=== PATIENT | female | born 1970 | race Caucasian/White ===

== ENCOUNTER 2017-03-06 08:28 | Inpatient (IN) | payer BC, MEDICAID, OTHER ==
[2017-03-06] MEDS ORDERED: Pantoprazole 40 MG VIAL ONE (08:53)
[2017-03-06] MEDS ORDERED: Fentanyl 100 MCG/2 ML VIAL ONE ×2 (08:53→11:30)
[2017-03-06] MEDS ORDERED: Ondansetron HCl/PF 4 MG/2 ML Vial ONE ×2 (08:53→13:35)
[2017-03-06] MEDS ORDERED: Pantoprazole 80 MG, Admixture Fee 1 EACH in Sodium Chloride 0.9% 100 ML IVP SCH (09:00)
[2017-03-06 09:01] LABS: Hematocrit 24.7 % (36.0-47.0); Mean Platelet Volume 6.8 fL (7.4-10.4); Red Blood Cell (RBC) Count 2.43 mill/uL (4.20-5.40); White Blood Cell (WBC) Count 16.1 thou/uL (4.8-10.8)
[2017-03-06 09:02] LABS: #Basophils 0.1 thou/uL (0.0-0.2); #Lymphocytes 1.9 thou/uL (1.20-3.40); #Neutrophils 13.1 thou/uL (1.40-6.50); %Basophils 0.4 % (0.0-1.0); %Eosinophils 0.3 % (0.0-10.0); %Lymphocytes 11.8 % (21.0-51.0); %Monocytes 6.1 % (0.0-10.0)
[2017-03-06 09:06] LABS: Prothrombin Time 24.1 SEC (12.0-14.7)
[2017-03-06 09:07] LABS: PTT 38.3 SEC (22.9-36.1)
[2017-03-06 09:29] LABS: Macrocytosis SLIGHT = 6-15 cells (100X) (0-5/hpf); Polychromasia MODERATE = 3-4 cells (100X) (0-2/hpf)
[2017-03-06] MEDS ORDERED: Acetaminophen 325 MG TAB PO PRN (09:49)
[2017-03-06] MEDS ORDERED: Ondansetron HCl/PF 4 MG/2 ML Vial IVP PRN (09:49)
[2017-03-06 12:25] LABS: #Lymphocytes 2.4 thou/uL (1.20-3.40); #Monocytes 0.9 thou/uL (0.11-0.59); #Neutrophils 10.2 thou/uL (1.40-6.50); %Basophils 0.3 % (0.0-1.0); %Eosinophils 0.3 % (0.0-10.0); %Lymphocytes 17.9 % (21.0-51.0); %Monocytes 6.5 % (0.0-10.0); Hematocrit 22.1 % (36.0-47.0); Mean Platelet Volume 6.8 fL (7.4-10.4); Red Blood Cell (RBC) Count 2.19 mill/uL (4.20-5.40); White Blood Cell (WBC) Count 13.6 thou/uL (4.8-10.8)
--- NOTE | 2017-03-06 12:40 | HP ---
PRIMARY CARE PROVIDER: Dr. Sanchez in [place], [place]. Referred to [facility] Emergency Department by the hospital in [place] for [facility] pitalist Service for GI bleeding. HISTORY OF PRESENT ILLNESS: Patient with her 7th gastrointestinal bleed this year. She had been hos pitalized at multiple hospitals. She started vomiting bright red blood and bright red blood per rect um in the past 12 hours. She has had dizziness and some cramping pain in her abdomen, which always s tarts the issue. She was seen in the [place] Emergency Room and found to have hemoglobin less than 7 and INR greater than 4. She was given fresh-frozen plasma and either 1 or 2 units of blood. At t hat point, she was transferred here. She is currently alert, awake, and fully cooperative. CURRENT MEDICATIONS: Losartan 125 one a day, Coumadin 5 mg a day, Topamax 25 mg twice a day, Keppra 750 mg twice a day. She is on no PPI. CHRONIC MEDICAL PROBLEMS: Hypertension, mitral valve prosthesis, chronic anticoagulation, migraine h eadaches, seizure disorder, hypertension. ALLERGIES: None, but she cannot take STEROIDS because this interferes with her Keppra. PAST SURGICAL HISTORY: She has had multiple EGDs and colonoscopies during the past year and has been found to have peptic ulcer disease and transiently treated with Protonix, but is currently not on a PPI. SOCIAL HISTORY: . CODE STATUS: FULL CODE status. No alcohol, tobacco, or illicit drugs. FAMILY HISTORY: Mother had a CVA. Father of an AK at 59. Has a daughter with vasculitis and M S. REVIEW OF SYSTEMS: General: She has had hot and cold spells, dizziness with present illness, but no fainting. She has recurrent migraine headaches. Eyes: She has had blurred vision with present il lness, no double vision or flashing lights. ENT: She has had epistaxis x2 in the past week. She color[place] s had bleeding when she brushes her gums. No ear pain or drainage. Cardiac: No chest pain, orthopn ea, or paroxysmal nocturnal dyspnea. Respirations: She gets short of breath when she is actively bl eeding and she is short of breath with exertion now with no cough, wheezing, or asthma. Gastrointest inal: See present illness. Genitourinary: No hematuria, dysuria. Musculoskeletal: No pain or swe lling in arms or legs. Neurological: No strokes, seizures, or focal weakness. Recently, she does t jaret Kera for seizure disorder. Psychiatric: No anxiety or depression. Skin: No bruising, bleedi ng, or rash. Heme/Lymph: No tender or swollen lymph nodes in axilla, inguinal, or cervical area. PHYSICAL EXAMINATION: GENERAL: The patient is alert, oriented, cooperative, pleasant lady. VITAL SIGNS: Blood pressure 145/85, pulse 107, respirations 16, temperature 99, O2 sat 100 on room a ir. HEENT: Examination of her head, eyes, ears, nose, and throat, pupils are equal, round, and reactive to light. Extraocular movements are intact. Mucous membranes are pale. Sclerae white. Tympanic me mbranes clear. Nose clear. Oral mucous membranes reveal no active bleeding at the present time. NECK: No jugular venous distention, adenopathy, or thyromegaly. CHEST: Clear to auscultation and percussion. HEART: Regular rate and rhythm. First and second heart sounds are clear. There are no appreciated murmurs or gallops. ABDOMEN: Soft, bowel sounds are normal. There is no hepatosplenomegaly, no mass, no rebound, no bru its. There is red blood in the rectal vault. EXTREMITIES: Reveal no cyanosis, clubbing, or edema. PULSES: Carotid, radial, femoral, and dorsalis pedis pulses intact. SKIN: Warm and dry without bruises or rash. HEME/LYMPH: No tender or swollen lymph nodes in axilla, inguinal, or cervical area. NEUROLOGICAL EXAM: Cranial nerves II-XII are intact. Deep tendon reflexes symmetric. LABORATORY DATA: Done in [place], sodium 135, potassium 3.9, chloride 109, CO2 of 14, BUN 53.8, cr eatinine 1.2, alkaline phosphatase 184, bilirubin 0.3. Transaminases are normal. White cell count 1 4.28, hemoglobin 7.1, platelet count 354,000. INR 4.6. I cannot find evidence of an EKG or chest x- ray done there. Here, her INR is 2.1, hemoglobin is 8.2, white count 16.1, platelet count 324,000. ADMITTING DIAGNOSES: 1. Acute gastrointestinal bleeding, both hematemesis and hematochezia. 2. Chronic anticoagulation, on Coumadin with coagulopathy secondary to anticoagulation post fresh-fr ozen plasma with INR now acceptable. 3. Prosthetic mitral valve. 4. Hypertension. 5. Seizure disorder. 6. History of peptic ulcer disease, not on a proton pump inhibitor. PLAN: 1. ICU admit. Daily PT/INR. We will start Coumadin when the INR is below 2, and start Lovenox now. 2. Serial H and H, transfuse for hemoglobin less than 7. 3. Protonix 40 mg IV q.12 hours. 4. Tagged red cell bleeding scan has been ordered stat. 5. GI consult. 6. IV fluids.
[2017-03-06] MEDS ORDERED: Acetaminophen 325 MG TAB ONE (13:35)
[2017-03-06] MEDS ORDERED: Morphine 4 MG/ML VIAL ONE (14:20)
--- NOTE | 2017-03-06 14:59 | NM ---
GI BLEEDING SCAN: HISTORY: Rectal bleeding. FINDINGS: The patient was given 27 mCi of Technetium tagged red blood cells IV. Blood flow and delayed images were obtained up to 90 minutes. FINDINGS: Initial blood flow images show normal vascular activity. Delayed images show vascular activity. No evidence of GI bleed identified. IMPRESSION: Negative GI bleeding scan. POS: [facility]
--- NOTE | 2017-03-06 16:57 | PDOC.EVN ---
Event Note - Event Note Event Note: bleeding scan neg, no active bleeding pr orpo since i saw her this am, CO abd pain, has benign exam
[2017-03-06] MEDS: Morphine 4 MG/ML VIAL SLOW IVP PRN ×2 (17:32→21:31)
[2017-03-06 18:49] LABS: #Eosinphils 0.1 thou/uL (0.0-0.7); #Lymphocytes 3.4 thou/uL (1.20-3.40); #Neutrophils 7.5 thou/uL (1.40-6.50); %Basophils 0.4 % (0.0-1.0); %Eosinophils 0.4 % (0.0-10.0); %Lymphocytes 28.6 % (21.0-51.0); %Monocytes 8.6 % (0.0-10.0); Hematocrit 20.2 % (36.0-47.0); Mean Platelet Volume 6.5 fL (7.4-10.4); Red Blood Cell (RBC) Count 2.01 mill/uL (4.20-5.40)
[2017-03-06] MEDS ORDERED: GoLYTELY 4,000 ml Bottle PO SCH (20:00)
[2017-03-06] MEDS: Sodium Chloride 0.45% 1,000 ML IV SCH (20:34)
[2017-03-06] MEDS: Pantoprazole 40 MG VIAL IVP SCH (20:35)
[2017-03-06] MEDS: levETIRAcetam 500 MG TAB PO SCH (20:35)
[2017-03-06] MEDS: Enoxaparin Sodium 80 MG/0.8 ML SYRINGE SC SCH (20:35)
[2017-03-06] MEDS: Sodium Chloride 0.9% 1,000 ML IV SCH (20:40)
[2017-03-06] MEDS: Acetaminophen/Codeine 30-300mg Tablet PO PRN (21:09)
--- NOTE | 2017-03-06 22:47 | CON ---
DATE OF CONSULTATION: 03/06/2017 A [id number] who had rheumatic valvular heart disease. She had mitral valve replacement with mec hanical valve 2 years ago. She has been on warfarin since then. She has had 6 GI bleeds she says pr marinor to this admission. She is little vague and describing what they found whether GI bleeds. She sa ys she has had "tied off and cauterized." She has a home monitoring INR device and says that her INR was greater than 4 yesterday. She held her Coumadin she says yesterday and was going to see her doc tor today when she started having melena and threw up old blood. She denies drawn bright red blood. PAST MEDICAL HISTORY: Remarkable for hypertension, history of seizure disorder, history of hypertens ion, history of vascular headaches. She reports steroid intolerance. FAMILY HISTORY: Negative for lung disease at an early age. Father of coronary artery di sease. Mother had a cerebrovascular accident. She has a daughter with vasculitis. REVIEW OF SYSTEMS: Otherwise negative. PHYSICAL EXAMINATION: GENERAL: She is afebrile, heart rate is 105, blood pressure 160/63, respiratory rate is 18, oximetry is 100%. HEENT: Pupils are equal. Sclerae is anicteric. NECK: Supple. LUNGS: Clear. HEART: Regular rhythm. ABDOMEN: Soft and nontender. EXTREMITIES: Without asymmetry. LABORATORY DATA: White count 13.6, hemoglobin 7.6, 8.2 four hours earlier, platelets 301. INR was 2 .1. She was given vitamin K, I am told. She had a gastrointestinal blood loss scan done at 9:45 this morning which showed no bleeding. IMPRESSION: Gastrointestinal bleeding secondary to anticoagulation. GI has been consulted. She bonnie ears clinically stable. Hemoglobin was to be repeated on arrival in the Critical Care Unit.
--- NOTE | 2017-03-07 00:21 | CON ---
DATE OF CONSULTATION: 03/06/2017 REASON FOR CONSULTATION: GI bleeding. CONSULTING PHYSICIAN: Keri Ritter M.D. HISTORY OF PRESENT ILLNESS: Patient is a 46-year-old female with past medical history of seizure disorder, hypertension, mechanical mitral valve of heart, and gastrointestinal bleeding secondary to gastric and duodenal ulcers, presenting with complaints of hematochezia and hematemesis. She states that over the last 12-24 hours she experienced increased abdominal cramping, generalized to her entire abdomen, nausea, vomiting, and dizziness that she has felt on previous occasions of GI bleeding. Shortly after the appearance of these symptoms, she experienced hematemesis in the form of vomiting bright red blood in addition to bright red blood per rectum, and hematuria. She chose to seek medical records assistant at the [facility] emergency room where she was found to have a hemoglobin less than 7, and an INR greater than 4. She was given FFP and PRBCs and transferred to [facility] ER. At the current point in time, she has had resolution of her abdominal cramping, nausea, and vomiting and no repeated episodes of GI bleeding since she has been inpatient. She denies any use of NSAIDs as an outpatient, but does have a history of approximately 7 discrete episodes of GI bleeding manifested as either upper GI or lower GI bleeding from ulcerations and/or AVMs. OUTPATIENT MEDICATIONS: Losartan 125 mg once daily, Coumadin 5 mg once daily, Topamax 25 mg twice daily, Keppra 750 mg twice daily. PAST MEDICAL HISTORY: Hypertension, mitral valve prosthesis, migraines, seizure disorder, hypertension. ALLERGIES: No known drug allergies. PAST SURGICAL HISTORY: Multiple endoscopies of both the upper and lower GI tract. SOCIAL HISTORY: Denies any tobacco, alcohol, or drugs. FAMILY HISTORY: CVA (mother), cardiovascular disease (father), vasculitis and multiple sclerosis (daughter). REVIEW OF SYSTEMS: A 12 category review of systems was obtained and was negative except for the pertinent positives as listed above in the HPI. PHYSICAL EXAMINATION: VITAL SIGNS: Heart rate 99, blood pressure 159/72, respiratory rate 17, satting 100% on room air. GENERAL: Patient is alert and oriented x4. HEENT: Pupils are equal and round, reactive to light with extraocular movement intact. CARDIOVASCULAR: Regular rate and rhythm with no discernible murmurs, gallops, or rubs. There was a loud clicking sound heard in the apex of the heart consistent with mitral valve prosthesis. ABDOMEN: Normoactive bowel sounds, soft, tender to palpation in all abdominal quadrants. EXTREMITIES: No cyanosis, clubbing, or edema. LABORATORY DATA: CBC with a white count of 12, hemoglobin 6.9, hematocrit 20.2 , platelet count 289. INR 2.1. IMAGING: Nuclear tagged red blood cell scan obtained on 03/06/2017, was negative for any acute gastrointestinal bleeding. ASSESSMENT AND PLAN: The patient is a 46-year-old female with past medical history of seizure disorder, migraines, hypertension, mechanical mitral valve prosthesis and previous episodes of GI bleeding, presenting with hematemesis and hematochezia, most likely due to a supratherapeutic INR. Gastrointestinal bleeding Patient presenting with a longstanding history of both upper and lower GI bleeds while on chronic anticoagulation for her mitral heart valve prosthesis. She has had multiple EGDs and colonoscopies with findings of gastric ulcers, duodenal ulcers, GI mucosal arteriovenous malformations and/or Dieulafoy's lesion. At this point in time, giving the appearance of hematemesis and hematochezia while on supratherapeutic INR and given her prior history of GI bleeding, bleeding in either the upper or lower GI tract cannot be ruled out. As such, the patient would benefit from both upper and lower endoscopic evaluation. PLAN: 1. We will plan for both EGD and colonoscopy tomorrow. We will place orders for the patient to be n.p.o. at midnight and GoLYTELY prep tonight. 2. Continue to trend H&H and transfuse as necessary to maintain H/H above 7/21. 3. Continue PPI drip. 4. Please notify GI director of recreation therapy if clinical situation changes. We will continue to follow. Please call with any questions. MTDD
[2017-03-07] MEDS: Morphine 4 MG/ML VIAL SLOW IVP PRN ×6 (01:33→23:13)
[2017-03-07 01:54] LABS: #Basophils 0.1 thou/uL (0.0-0.2); #Eosinphils 0.1 thou/uL (0.0-0.7); #Lymphocytes 3.1 thou/uL (1.20-3.40); #Monocytes 0.9 thou/uL (0.11-0.59); #Neutrophils 6.3 thou/uL (1.40-6.50); %Basophils 0.6 % (0.0-1.0); %Eosinophils 0.8 % (0.0-10.0); %Lymphocytes 29.8 % (21.0-51.0); %Monocytes 8.3 % (0.0-10.0); Hematocrit 22.6 % (36.0-47.0); Mean Platelet Volume 6.5 fL (7.4-10.4); Red Blood Cell (RBC) Count 2.29 mill/uL (4.20-5.40); White Blood Cell (WBC) Count 10.5 thou/uL (4.8-10.8)
[2017-03-07] MEDS ORDERED: GoLYTELY 4,000 ml Bottle PO SCH (05:00)
[2017-03-07] MEDS: Sodium Chloride 0.45% 1,000 ML IV SCH ×2 (06:07→13:04)
[2017-03-07 06:27] LABS: #Basophils 0.1 thou/uL (0.0-0.2); #Eosinphils 0.1 thou/uL (0.0-0.7); #Lymphocytes 2.8 thou/uL (1.20-3.40); #Monocytes 0.8 thou/uL (0.11-0.59); #Neutrophils 5.1 thou/uL (1.40-6.50); %Basophils 0.8 % (0.0-1.0); %Eosinophils 0.9 % (0.0-10.0); %Lymphocytes 31.4 % (21.0-51.0); %Monocytes 8.9 % (0.0-10.0); Hematocrit 21.5 % (36.0-47.0); Mean Platelet Volume 6.3 fL (7.4-10.4); Red Blood Cell (RBC) Count 2.19 mill/uL (4.20-5.40); White Blood Cell (WBC) Count 8.8 thou/uL (4.8-10.8)
[2017-03-07 06:39] LABS: Anion Gap 10 mmol/L (10-20); BUN (Urea Nitrogen) 16 mg/dL (7.0-18.7); Calc. Creatinine Clearance 137 mL/min (70-130); Calcium 8.1 mg/dL (7.8-10.44); Carbon Dioxide 23 mmol/L (22-29); Chloride 108 mmol/L (98-107); Estimated GFR-MDRD 87
[2017-03-07 06:47] LABS: PTT 29.8 SEC (22.9-36.1); Prothrombin Time 14.5 SEC (12.0-14.7)
--- NOTE | 2017-03-07 07:53 | PDOC.PN ---
- Subjective Encounter Start Date: 03/07/17 Encounter Start Time: 07:50 Subjective: cont to CO abd cramping, has dark stools, - Objective Resuscitation Status: Resuscitation Status FULL:Full Resuscitation MAR Reviewed: Yes Vital Signs & Weight: Vital Signs (12 hours) Temp Pulse Pulse Resp BP Pulse Ox 03/07/17 04:00 98.4 F 03/07/17 00:15 98.1 F 95 18 127/72 100 03/07/17 00:00 98.1 F 03/06/17 22:09 98.3 F 96 12 127/59 L 99 03/06/17 22:00 98.3 F 03/06/17 20:00 98.1 F 92 12 100 Weight Admit Weight 2.963 oz Most Recent Monitor Data Heart Rate from ECG 94 NIBP 128/81 NIBP BP-Mean 87 Respiration from ECG 12 SpO2 98 I&O: 03/06/17 03/07/17 03/08/17 06:59 06:59 06:59 Intake Total 4771 Output Total 1200 Balance 3571 Result Diagrams: 03/07/17 06:15 03/07/17 06:15 Phys Exam - Physical Examination HEENT: oral pharynx no lesions Neck: no nodes, no JVD Respiratory: clear to auscultation bilateral Cardiovascular: RRR, no significant murmur Gastrointestinal: soft, non-tender, positive bowel sounds Musculoskeletal: no edema Dx/Plan (1) Chronic anticoagulation Code(s): Z79.01 - MCC (CURRENT) USE OF ANTICOAGULANTS Status: Acute (2) Anemia due to acute blood loss Code(s): D62 - ACUTE POSTHEMORRHAGIC ANEMIA Status: Acute (3) GI bleed Code(s): K92.2 - GASTROINTESTINAL HEMORRHAGE, UNSPECIFIED Status: Acute Qualifiers: GI bleed type/associated pathology: unspecified gastrointestinal hemorrhage type Qualified Code(s): K92.2 - Gastrointestinal hemorrhage, unspecified (4) HTN (hypertension) Code(s): I10 - ESSENTIAL (PRIMARY) HYPERTENSION Status: Acute Qualifiers: Hypertension type: essential hypertension Qualified Code(s): I10 - Essential (primary) hypertension (5) Mechanical heart valve present Code(s): Z95.2 - PRESENCE OF PROSTHETIC HEART VALVE Status: Chronic (6) Seizure disorder Code(s): G40.909 - EPILEPSY, UNSP, NOT INTRACTABLE, WITHOUT STATUS EPILEPTICUS Status: Chronic - Plan cont serial H&H, cont iv protonix, transfuse prn -: off coumadin, on lovenox 1 mg pr kg q12h -: endoscopy today -: on MS for pain * .
[2017-03-07] MEDS: Pantoprazole 40 MG VIAL IVP SCH (10:03)
[2017-03-07] MEDS: Enoxaparin Sodium 80 MG/0.8 ML SYRINGE SC SCH ×2 (10:08→20:08)
[2017-03-07] MEDS ORDERED: Potassium Chloride 20 MEQ TAB PO PRN (11:17)
[2017-03-07] MEDS ORDERED: Magnesium Oxide 400 MG TAB PO PRN (11:17)
[2017-03-07] MEDS ORDERED: Potassium Phosphate 9 MMOL in Sodium Chloride 0.9% 100 ML IVPB PRN (11:17)
[2017-03-07] MEDS ORDERED: Potassium Chloride 40 MEQ in Sodium Chloride 0.9% 250 ML 250 ML IVPB PRN (11:17)
[2017-03-07] MEDS ORDERED: Magnesium 2 GM/NS 0.9% 100 ML 2 GM in Premix Bag 1 BAG IVPB PRN (11:17)
[2017-03-07] MEDS ORDERED: Potassium Phosphate 12 MMOL in Sodium Chloride 0.9% 250 ML 250 ML IV PRN (11:17)
[2017-03-07] MEDS ORDERED: Potassium Phosphate 15 MMOL in Sodium Chloride 0.9% 250 ML 250 ML IV PRN (11:17)
--- NOTE | 2017-03-07 11:47 | PRG ---
DATE OF SERVICE: 03/07/2017 SUBJECTIVE: Ms. Gutierrez did well overnight. She says she is still having black stool. OBJECTIVE: VITAL SIGNS: Blood pressure 108/47, heart rate 94, respiratory rate 20, oximetry is 99. LUNGS: Clear. HEART: Regular rhythm. ABDOMEN: Soft. Hemoglobin this morning 7.2. She is scheduled for upper and lower endoscopy today. IMPRESSION: 1. Gastrointestinal blood loss. 2. Chronic anticoagulation with mechanical mitral valve. This will need to be restarted as soon as possible. INR is 1.1 now.
[2017-03-07] MEDS: levETIRAcetam 500 MG TAB PO SCH ×2 (12:48→20:08)
[2017-03-07] MEDS: Potassium Chloride 40 MEQ in Premix Bag 1 BAG IVPB PRN (13:04)
[2017-03-07] MEDS ORDERED: Lidocaine 1% PF 5 ML VIAL ONE (14:21)
[2017-03-07] MEDS ORDERED: Propofol 200 MG/20 ML VIAL ONE (14:21)
[2017-03-07] MEDS ORDERED: Meperidine HCl/PF 25 MG/ML VIAL SLOW IVP PRN (17:03)
[2017-03-07] MEDS ORDERED: Promethazine HCl 25 MG/ML VIAL SLOW IVP PRN (17:03)
[2017-03-07] MEDS ORDERED: Ondansetron HCl/PF 4 MG/2 ML Vial IVP PRN (17:03)
[2017-03-07] MEDS ORDERED: Promethazine HCl 25 MG/ML VIAL IM PRN (17:03)
--- NOTE | 2017-03-07 18:23 | OP ---
SURGEON: Vaibhav Teran M.D. PREOPERATIVE DIAGNOSIS: Gastrointestinal bleed. DESCRIPTION OF PROCEDURE: After informed consent was obtained, the patient was placed in the left la teral decubitus position. Anesthesia was administered per the Anesthesia Department. Forward viewin g therapeutic gastroscope was inserted into the esophagus under direct visualization with ease and pa ssed to the second portion of the duodenum with ease. Second portion of the duodenum was very diffic ult to visualize secondary to deformity of the second portion of the duodenum with some stricturing a nd difficulty for the gastroscope to hold in the area of the junction of the first and second portion of the duodenum. In that area was an ulcer that was visualized. No obvious stigmata of recent hemo rrhage were noted. No obvious blood vessels seen. There was some slightly bloody effluent in this a thierno. The therapeutic gastroscope was tried. The diagnostic gastroscope was tried and then the colon oscope was tried, none with the success and staying in the area at the junction of the first and seco nd portion of the duodenum. No treatment was applied to the ulcer. The pylorus, antrum, body, fundu s, and cardia were normal. Retroflexion in the stomach was normal. Esophagus was normal throughout. ASSESSMENT: 1. Duodenal ulcer in the second portion of the duodenum not well visualized without obvious stigmata of recent hemorrhage or visible vessels and some bloody effluent in the area - not able to treat thi s ulcer endoscopically. 2. Deformity of the second portion of the duodenum. 3. Otherwise, normal esophagogastroduodenoscopy. RECOMMENDATION: 1. Continuous infusion PPI. 2. Surgical opinion if rebleeds. 3. PPIs FOR LIFE. 4. Proceed with colonoscopy. PROCEDURE: After informed consent was obtained, the patient was placed in the left lateral decubitus position. Anesthesia was administered per the Anesthesia Department. Forward endoscope was inserte d into the rectum after perianal inspection and rectal exam were normal. This was passed to the cecu m with ease. The cecum, ileocecal valve, and appendiceal orifice were normal. The prep was good. T he ascending, transverse, descending, sigmoid, and rectum were normal. Retroflexion in rectum was no rmal. No blood was seen in the lower GI tract. The terminal ileum was visualized and had a green ef fluent. ASSESSMENT: Normal ileal colonoscopy. RECOMMENDATIONS: As above.
[2017-03-07] MEDS: Pantoprazole 80 MG in Sodium Chloride 0.9% 100 ML IVPB SCH (18:29)
[2017-03-07] MEDS ORDERED: HYDROcodone/Acetaminophen 7.5/325 mg Tablet PO PRN (21:52)
[2017-03-07] MEDS: HYDROcodone/Acetaminophen 7.5/325 mg Tablet PO PRN (22:14)
[2017-03-08] MEDS: HYDROcodone/Acetaminophen 7.5/325 mg Tablet PO PRN ×2 (04:13→20:30)
[2017-03-08] MEDS: Sodium Chloride 0.45% 1,000 ML IV SCH ×4 (04:14→22:27)
[2017-03-08 04:42] LABS: Anion Gap 8 mmol/L (10-20); BUN (Urea Nitrogen) 5 mg/dL (7.0-18.7); Calc. Creatinine Clearance 150 mL/min (70-130); Calcium 8.3 mg/dL (7.8-10.44); Carbon Dioxide 27 mmol/L (22-29); Chloride 109 mmol/L (98-107); Estimated GFR-MDRD Greater than 90
[2017-03-08] MEDS: Pantoprazole 80 MG in Sodium Chloride 0.9% 100 ML IVPB SCH ×2 (05:08→15:26)
[2017-03-08] MEDS: Morphine 4 MG/ML VIAL SLOW IVP PRN ×5 (05:46→22:24)
[2017-03-08] MEDS: Potassium Chloride 40 MEQ in Premix Bag 1 BAG IVPB PRN (06:41)
--- NOTE | 2017-03-08 08:30 | PDOC.PN ---
- Subjective Encounter Start Date: 03/08/17 Encounter Start Time: 08:28 Subjective: no bleeding - Objective Resuscitation Status: Resuscitation Status FULL:Full Resuscitation MAR Reviewed: Yes Vital Signs & Weight: Vital Signs (12 hours) Temp 03/08/17 04:00 98.3 F 03/08/17 00:00 98.2 F Weight Admit Weight 198 lb 3.12 oz Weight 198 lb 3.12 oz Most Recent Monitor Data Heart Rate from ECG 77 NIBP 120/49 NIBP BP-Mean 75 Respiration from ECG 21 SpO2 95 I&O: 03/07/17 03/08/17 03/09/17 06:59 06:59 06:59 Intake Total 4771 3869 Output Total 1200 3450 Balance 3571 419 Result Diagrams: 03/07/17 06:15 03/08/17 04:20 Phys Exam - Physical Examination Constitutional: NAD Neck: no JVD Respiratory: clear to auscultation bilateral Cardiovascular: RRR crisp valve sounds Gastrointestinal: soft, positive bowel sounds Musculoskeletal: no edema Dx/Plan (1) Chronic anticoagulation 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 Status: Acute (2) Anemia due to acute blood loss Code(s): D62 - ACUTE POSTHEMORRHAGIC ANEMIA Status: Acute (3) GI bleed Code(s): K92.2 - GASTROINTESTINAL HEMORRHAGE, UNSPECIFIED Status: Acute Qualifiers: GI bleed type/associated pathology: unspecified gastrointestinal hemorrhage type Qualified Code(s): K92.2 - Gastrointestinal hemorrhage, unspecified (4) HTN (hypertension) Code(s): I10 - ESSENTIAL (PRIMARY) HYPERTENSION Status: Acute Qualifiers: Hypertension type: essential hypertension Qualified Code(s): I10 - Essential (primary) hypertension (5) Mechanical heart valve present Code(s): Z95.2 - PRESENCE OF PROSTHETIC HEART VALVE Status: Chronic (6) Seizure disorder Code(s): G40.909 - EPILEPSY, UNSP, NOT INTRACTABLE, WITHOUT STATUS EPILEPTICUS Status: Chronic (7) Duodenal ulcer Status: Acute - Plan cbc pending, cont PPI infusion, restart anticoag josefina * .
[2017-03-08 08:38] LABS: #Eosinphils 0.2 thou/uL (0.0-0.7); #Monocytes 0.5 thou/uL (0.11-0.59); #Neutrophils 3.1 thou/uL (1.40-6.50); %Basophils 0.6 % (0.0-1.0); %Eosinophils 2.7 % (0.0-10.0); %Lymphocytes 33.9 % (21.0-51.0); %Monocytes 8.7 % (0.0-10.0); Hematocrit 20.8 % (36.0-47.0); Mean Platelet Volume 7.1 fL (7.4-10.4); Red Blood Cell (RBC) Count 2.06 mill/uL (4.20-5.40); White Blood Cell (WBC) Count 5.8 thou/uL (4.8-10.8)
[2017-03-08] MEDS: levETIRAcetam 500 MG TAB PO SCH ×2 (09:00→20:29)
[2017-03-08] MEDS: Enoxaparin Sodium 80 MG/0.8 ML SYRINGE SC SCH ×2 (09:07→20:30)
--- NOTE | 2017-03-08 10:21 | PRG ---
DATE OF SERVICE: 03/08/2017 INITIAL REASON FOR CONSULTATION: GI bleeding. SUBJECTIVE: Overnight, patient is without any further problems or complaints. No further episodes of hematemesis or melena. Currently, denies any nausea, vomiting, fevers, chills, abdominal pain, and GI bleed. EGD and colonoscopy performed on 03/07/2017 showing a large duodenal ulcer within the duodenal sweep that could not be intervened upon endoscopically, but did not show any high risk stigmata of bleeding including red spot, visible vessel, or adherent clot. LABORATORY DATA: CBC with white count of 5.8, hemoglobin 7, hematocrit 20.8, platelets 251. Chemistry; sodium 141, potassium 3.1, chloride 109, carbon dioxide 27, BUN 5, creatinine 0.66, and glucose 117. IMAGING: EGD and colonoscopy performed on 03/07/2017 showing a large duodenal ulcer within the duodenal sweep that did not show any high risk stigmata of bleeding or any active bleeding. Endoscopic therapy was not applied given the tenuous position of this particular ulcer. Colonoscopy was negative for active/ recent bleeding or etiology of bleeding. ASSESSMENT AND PLAN: The patient is a 46-year-old female with a past medical history of seizure disorder, migraine, hypertension, mechanical mitral valve prosthesis on chronic anticoagulation and previous episodes of gastrointestinal bleeding, presenting with hematemesis, hematochezia, most likely due to supratherapeutic INR, coupled with a large duodenal ulcer. Gastrointestinal bleeding. The patient presenting with a longstanding history of both upper and lower gastrointestinal bleeds while on chronic anticoagulation for mitral heart valve prosthesis. EGD and colonoscopy performed on 03/07/2017 showed a large duodenal ulcer without high risk stigmata of bleeding that could not be intervened upon endoscopically. At this point, this is the most likely reason for her recent drop in hemoglobin and hematocrit, hematemesis, hematochezia while having a supratherapeutic INR. Given the lack of high risk stigmata of bleeding/rebleeding, the patient could be restarted on anticoagulation for her mitral valve prosthesis and close monitoring for any further signs of gastrointestinal bleeding. PLAN: 1. Continue to follow with primary inpatient team. 2. Continue to trend hemoglobin and hematocrit and transfuse as necessary to maintain hemoglobin and hematocrit above 7/21. 3. Continue PPI drip for the next 24 hours. Then, the patient can be transferred to PPI 40 mg b.i.d. and will need to be on this medication indefinitely. 4. Patient is okay to restart anticoagulation in the form of therapeutic Lovenox (due to lack of high risk stigmata seen on EGD) with close monitoring for possible rebleeding. 5. If the patient does rebleed, given the tenuous position of the ulceration, a surgical consultation would be highly recommended due to failure of being able to intervene on this endoscopically. We will continue to follow. Please call with any questions. MTDD
[2017-03-08 10:22] LABS: Prothrombin Time 13.3 SEC (12.0-14.7)
[2017-03-08 10:42] LABS: PTT 28.3 SEC (22.9-36.1)
[2017-03-09] MEDS: HYDROcodone/Acetaminophen 7.5/325 mg Tablet PO PRN ×4 (02:24→19:52)
[2017-03-09] MEDS: Morphine 4 MG/ML VIAL SLOW IVP PRN ×6 (02:25→23:25)
[2017-03-09 04:54] LABS: Anion Gap 8 mmol/L (10-20); BUN (Urea Nitrogen) 5 mg/dL (7.0-18.7); Calc. Creatinine Clearance 154 mL/min (70-130); Calcium 8.5 mg/dL (7.8-10.44); Carbon Dioxide 27 mmol/L (22-29); Chloride 109 mmol/L (98-107); Estimated GFR-MDRD Greater than 90
[2017-03-09 04:58] LABS: Prothrombin Time 13.5 SEC (12.0-14.7)
[2017-03-09] MEDS: Sodium Chloride 0.45% 1,000 ML IV SCH ×2 (05:58→19:22)
[2017-03-09] MEDS: Potassium Chloride 40 MEQ in Premix Bag 1 BAG IVPB PRN (05:58)
[2017-03-09] MEDS: Enoxaparin Sodium 80 MG/0.8 ML SYRINGE SC SCH ×2 (08:20→19:53)
[2017-03-09] MEDS ORDERED: Potassium Chloride 20 MEQ/100 ML PREMIX BAG IVPB SCH (09:45)
[2017-03-09 09:57] LABS: Hematocrit 20.3 % (36.0-47.0)
--- NOTE | 2017-03-09 10:05 | PRG ---
DATE OF SERVICE: 03/09/2017 SUBJECTIVE: The patient seen and examined at the bedside. She is feeling better, but she is still v hebert weak. OBJECTIVE: VITAL SIGNS: Blood pressure is 155/65, pulse is 87, rate is 22 and pulse oximetry is 100%. HEENT: Head is atraumatic, normocephalic. Skin looks palish, conjunctivae palish. Oral mucosa is m oist. NECK: Supple. LUNGS: Clear. HEART: S1, S2 normal, no S3, no S4. ABDOMEN: Soft, nontender, nondistended. EXTREMITIES: No clubbing, cyanosis or edema. NEUROLOGIC: She is alert and oriented x4. There is not any motor or sensory deficit present. Crani al nerves are intact. LABORATORY DATA: None except for INR which is 1.0, PT 13.5 and APTT 33.0. Chemistry which showed so dium of 141, potassium 3.1, chloride 109, CO2 27, BUN 5, creatinine 0.64, glucose 116, calcium 8.5 IMPRESSION: 1. Acute gastrointestinal bleeding secondary to a bleeding duodenal ulcer. The patient is on a Prot eileen drip. Dr. Arias saw the patient yesterday, he recommends to switch her to IV Protonix q.12h. an d stop the drip. There is not any sign of blood loss at this point. 2. Anemia due to acute blood loss. Hemoglobin is not checked today. We will get the level, H&H. 3. Chronic anticoagulation. The patient was started on full dose of Lovenox 80 mg q.12 hours subcut aneously. We will contact Dr. Arias whether we can start her on warfarin today. 4. Mechanical heart valve. 5. Hypertension. 6. Seizure disorder, stable, chronic. PLAN: As mentioned above. We will most likely keep her on a full liquid diet and advanced gradually per GI recommendation. We will continue her Lovenox 80 mg subcutaneously every 12 hours, we will sw itch her to Protonix 40 mg IV piggyback q.12 hours and she will be watched for additional 24 hours in the Intensive Care Unit then she will be transferred to medical floor.
[2017-03-09] MEDS: Pantoprazole 40 MG VIAL IVP SCH ×2 (11:33→19:55)
[2017-03-09 12:54] LABS: Hematocrit 21.1 % (36.0-47.0)
[2017-03-09] MEDS: Magnesium Oxide 400 MG TAB PO PRN ×2 (14:35→17:59)
[2017-03-09] MEDS: Warfarin Sodium 5 MG TAB PO SCH (17:59)
[2017-03-09] MEDS: levETIRAcetam 500 MG TAB PO SCH (19:55)
[2017-03-09] MEDS: Zolpidem Tartrate 5 MG TAB PO PRN (23:33)
[2017-03-10] MEDS: Morphine 4 MG/ML VIAL SLOW IVP PRN ×3 (03:56→11:50)
[2017-03-10 04:51] LABS: Anion Gap 7 mmol/L (10-20); BUN (Urea Nitrogen) 7 mg/dL (7.0-18.7); Calc. Creatinine Clearance 152 mL/min (70-130); Calcium 8.6 mg/dL (7.8-10.44); Carbon Dioxide 32 mmol/L (22-29); Chloride 106 mmol/L (98-107); Estimated GFR-MDRD Greater than 90; PTT 34.9 SEC (22.9-36.1); Prothrombin Time 13.2 SEC (12.0-14.7)
[2017-03-10] MEDS: Sodium Chloride 0.45% 1,000 ML IV SCH ×2 (05:36→16:09)
[2017-03-10] MEDS: Pantoprazole 40 MG VIAL IVP SCH ×2 (08:34→20:15)
[2017-03-10] MEDS: Enoxaparin Sodium 80 MG/0.8 ML SYRINGE SC SCH ×2 (08:34→20:15)
[2017-03-10] MEDS: HYDROcodone/Acetaminophen 7.5/325 mg Tablet PO PRN ×2 (08:41→22:22)
[2017-03-10] MEDS: Magnesium Oxide 400 MG TAB PO PRN (08:42)
[2017-03-10] MEDS: Losartan Potassium 25 MG TAB PO SCH (08:57)
--- NOTE | 2017-03-10 12:29 | PRG ---
DATE OF SERVICE: 03/10/2017 SUBJECTIVE: The patient seen and examined at the bedside. She is doing well. She does not have muc h complaint to offer except for some weakness which improved significantly from yesterday. OBJECTIVE: VITAL SIGNS: Blood pressure is 134/42, pulse is 89, respiratory rate is 14, O2 saturation is 100% on room air. HEENT: Head is atraumatic, normocephalic. Skin is pale. Conjunctivae palish. Pupils are respondin g to light properly. Oral mucosa is slightly pale. NECK: Supple, no JVD. LUNGS: Clear. HEART: S1, S2 normal, no S3, no S4. ABDOMEN: Soft and nontender. Bowel sounds are present. No organomegaly. EXTREMITIES: No clubbing, cyanosis or edema. NEUROLOGIC: She is alert and oriented x4. There is no anymore motor or sensory deficit present. Cr anial nerves are intact. LABORATORY DATA: Showed hemoglobin 7.1, hematocrit 21.1, INR 1.0, potassium 3.3, CO2 of 32, creatini ne 0.65, and glucose 109 IMPRESSION: 1. Acute gastrointestinal bleeding secondary to a bleeding duodenal ulcer. The patient is switched to Protonix IV piggyback every 12 hours. There is not any evidence that she is actively bleeding at this point. Hemoglobin and hematocrit is ordered and is pending. 2. Anemia due to acute blood loss. Awaiting hemoglobin and hematocrit level. 3. Chronic anticoagulation. The patient is on Lovenox 80 mg q.12 hours subcutaneously and she was s tarted on warfarin 5 mg last night and she will continue 5 mg daily. 4. Mechanical heart valve. 5. Hypertension. 6. Seizure disorder, stable, chronic on Keppra. PLAN: Plan is to start her on losartan and home medication dose 100 mg daily. Continue her Keppra. Continue her Lovenox 80 mg subcutaneously every 12 hours. Obtain hemoglobin and hematocrit and siegel sferred to medical floor. The patient was seen by GI and Critical Care and both of them okay to siegel sfer her to the floor.
[2017-03-10 13:15] LABS: Hematocrit 22.3 % (36.0-47.0)
[2017-03-10] MEDS: Morphine 5 mg/5 ml in 0.9% NaCl/PF SYRINGE SLOW IVP PRN ×2 (16:03→20:16)
[2017-03-10] MEDS: Warfarin Sodium 5 MG TAB PO SCH (16:15)
[2017-03-10] MEDS: levETIRAcetam 500 MG TAB PO SCH (20:15)
[2017-03-11] MEDS: Morphine 5 mg/5 ml in 0.9% NaCl/PF SYRINGE SLOW IVP PRN ×6 (00:17→21:29)
[2017-03-11] MEDS: Zolpidem Tartrate 5 MG TAB PO PRN (01:47)
[2017-03-11] MEDS: Sodium Chloride 0.45% 1,000 ML IV SCH (02:02)
[2017-03-11 05:31] LABS: PTT 36.9 SEC (22.9-36.1); Prothrombin Time 13.6 SEC (12.0-14.7)
[2017-03-11] MEDS ORDERED: Potassium Chloride 20 MEQ TAB PO SCH ×2 (08:00→10:30)
[2017-03-11] MEDS: Pantoprazole 40 MG VIAL IVP SCH ×2 (08:12→19:46)
[2017-03-11] MEDS: Losartan Potassium 25 MG TAB PO SCH (08:12)
[2017-03-11 08:35] LABS: Hematocrit 22.2 % (36.0-47.0)
[2017-03-11 08:59] LABS: Anion Gap 7 mmol/L (10-20); BUN (Urea Nitrogen) 7 mg/dL (7.0-18.7); Calc. Creatinine Clearance 147 mL/min (70-130); Calcium 8.9 mg/dL (7.8-10.44); Carbon Dioxide 29 mmol/L (22-29); Chloride 104 mmol/L (98-107); Estimated GFR-MDRD Greater than 90
[2017-03-11] MEDS: Enoxaparin Sodium 80 MG/0.8 ML SYRINGE SC SCH ×2 (09:12→21:30)
[2017-03-11] MEDS: HYDROcodone/Acetaminophen 7.5/325 mg Tablet PO PRN ×2 (11:18→19:46)
--- NOTE | 2017-03-11 16:48 | PRG ---
DATE OF SERVICE: 03/11/2017 SUBJECTIVE: The patient is having vague abdominal pain. OBJECTIVE: VITAL SIGNS: Blood pressure 135/70, O2 sats 100%, temperature 97, pulse 82. CHEST: Decreased breath sounds, no wheezing. CARDIAC: Normal S1, S2. No gallops. ABDOMEN: Soft, no masses. LABORATORY DATA: H&H is stable at 7 and 22. IMPRESSION 1. Gastrointestinal bleed. 2. Chronic anticoagulation. 3. Prosthetic mitral valve. PLAN: Continue present treatment. Input from GI. Pulmonary will follow at a distance.
[2017-03-11] MEDS ORDERED: Warfarin Sodium 5 MG TAB PO SCH ×2 (17:00)
--- NOTE | 2017-03-11 18:45 | PRG ---
DATE OF SERVICE: 03/11/2017 SUBJECTIVE: The patient is seen and examined at the bedside. She is doing better and she looks bett er. Her face has some colors now. OBJECTIVE: VITAL SIGNS: Blood pressure is 116/55, temperature is 97.6, O2 saturation is 99% on room air, respir ations are 14, and pulse is 84. HEENT: Head is atraumatic, normocephalic. Her conjunctivae are still palish. Oral mucosa is still somewhat pale. NECK: Supple, no lymphadenopathy. LUNGS: Clear. HEART: S1, S2 normal, no S3, no S4. There is a typical click from mechanical valve present that is mitral valve. ABDOMEN: Soft, nontender, bowel sounds are present. No organomegaly. EXTREMITIES: No clubbing, cyanosis or edema. NEUROLOGIC: She is alert and oriented x4. LABORATORY DATA: Showed hemoglobin is 7.39, hematocrit is 22.2 and platelet count is 278,000. Her I NR is 1.0, PT is 13.6 and aPTT 36.9. Chemistry showed sodium of 137, potassium 3.2, chloride 104, C O2 29, creatinine 0.69. Glycemia is 122 with calcium of 8.9. IMPRESSION: 1. Acute gastrointestinal bleeding secondary to bleeding duodenal ulcer. Patient is switched to IV piggyback Protonix every 12 hours. There is not any evidence of more gastrointestinal blood loss. H er hemoglobin is staying at the range of 7.3 this morning. 2. Anemia due to acute blood loss. As mentioned above, stable. 3. Chronic anticoagulation. The patient is on Lovenox full dose and on warfarin. Her INR has not c hanged, so we are going to give her 10 mg of warfarin tonight and tomorrow. We will see how she does , but most likely she will need also 10 mg. 4. Mechanical heart valve, mitral. 5. Hypertension, controlled. 6. Seizure disorder, stable, chronic on Keppra. PLAN: Plan is to continue her on Lovenox full dose 80 mg every 12 hours, double the dose on her warf ammy tonight at 10 mg and continue PT and INR.
[2017-03-11] MEDS: levETIRAcetam 500 MG TAB PO SCH (19:46)
[2017-03-12] MEDS: Morphine 5 mg/5 ml in 0.9% NaCl/PF SYRINGE SLOW IVP PRN ×6 (01:51→22:12)
[2017-03-12] MEDS: HYDROcodone/Acetaminophen 7.5/325 mg Tablet PO PRN ×3 (04:32→20:06)
[2017-03-12 04:50] LABS: Hematocrit 20.7 % (36.0-47.0)
[2017-03-12 04:54] LABS: PTT 37.8 SEC (22.9-36.1); Prothrombin Time 13.7 SEC (12.0-14.7)
[2017-03-12 04:59] LABS: Calc. Creatinine Clearance 158 mL/min (70-130); Estimated GFR-MDRD Greater than 90
[2017-03-12] MEDS: Pantoprazole 40 MG VIAL IVP SCH ×2 (08:27→19:58)
[2017-03-12] MEDS: Losartan Potassium 25 MG TAB PO SCH (08:28)
[2017-03-12] MEDS: Enoxaparin Sodium 80 MG/0.8 ML SYRINGE SC SCH ×2 (08:57→19:57)
[2017-03-12] MEDS ORDERED: Warfarin Sodium 5 MG TAB PO SCH (17:00)
--- NOTE | 2017-03-12 18:42 | PDOC.PN ---
- Subjective Encounter Start Date: 03/12/17 Encounter Start Time: 18:40 Subjective: Seen and examined with no major complaint except mild GI bleed - Objective Resuscitation Status: Resuscitation Status FULL:Full Resuscitation Vital Signs & Weight: Vital Signs (12 hours) Temp Pulse Resp BP Pulse Ox 03/12/17 08:00 98 F 83 18 03/12/17 07:53 98 F 83 18 134/82 100 Weight Admit Weight 198 lb 3.12 oz Weight 201 lb 0.985 oz Most Recent Monitor Data Heart Rate from ECG 90 NIBP 151/67 NIBP BP-Mean 113 Respiration from ECG 18 SpO2 100 I&O: 03/11/17 03/12/17 03/13/17 06:59 06:59 06:59 Intake Total 4915 2400 1979 Output Total 1999 Balance 2915 2400 1979 Result Diagrams: 03/12/17 04:24 03/12/17 04:24 Phys Exam - Physical Examination Constitutional: NAD HEENT: PERRLA, moist MMs, sclera anicteric, TM's clear Neck: no nodes, no JVD, supple, full ROM Respiratory: no wheezing, no rales, no rhonchi, clear to auscultation bilateral Cardiovascular: RRR, no significant murmur, no rub Gastrointestinal: soft, non-tender, no distention, positive bowel sounds Dx/Plan (1) Anemia due to acute blood loss Code(s): D62 - ACUTE POSTHEMORRHAGIC ANEMIA Status: Acute (2) Chronic anticoagulation Code(s): Z79.01 - UNDERLINER (CURRENT) USE OF ANTICOAGULANTS Status: Acute (3) Duodenal ulcer Status: Acute (4) GI bleed Code(s): K92.2 - GASTROINTESTINAL HEMORRHAGE, UNSPECIFIED Status: Acute Qualifiers: GI bleed type/associated pathology: unspecified gastrointestinal hemorrhage type Qualified Code(s): K92.2 - Gastrointestinal hemorrhage, unspecified (5) HTN (hypertension) Code(s): I10 - ESSENTIAL (PRIMARY) HYPERTENSION Status: Acute Qualifiers: Hypertension type: essential hypertension Qualified Code(s): I10 - Essential (primary) hypertension (6) Mechanical heart valve present Code(s): Z95.2 - PRESENCE OF PROSTHETIC HEART VALVE Status: Chronic (7) Seizure disorder Code(s): G40.909 - EPILEPSY, UNSP, NOT INTRACTABLE, WITHOUT STATUS EPILEPTICUS Status: Chronic - Plan PT/OT, group social worker On full dose lovenox and coumadin -: awaiting therapeutic INR to d/c lovenox * .
[2017-03-12] MEDS: levETIRAcetam 500 MG TAB PO SCH (19:58)
[2017-03-13] MEDS: Morphine 5 mg/5 ml in 0.9% NaCl/PF SYRINGE SLOW IVP PRN ×6 (02:07→22:39)
[2017-03-13 04:58] LABS: PTT 37.6 SEC (22.9-36.1); Prothrombin Time 14.2 SEC (12.0-14.7)
[2017-03-13] MEDS: HYDROcodone/Acetaminophen 7.5/325 mg Tablet PO PRN ×3 (07:41→21:41)
[2017-03-13] MEDS: Enoxaparin Sodium 80 MG/0.8 ML SYRINGE SC SCH ×2 (08:20→20:51)
[2017-03-13] MEDS: Pantoprazole 40 MG VIAL IVP SCH ×2 (08:21→20:51)
--- NOTE | 2017-03-13 12:01 | PDOC.PN ---
- Subjective Encounter Start Date: 03/13/17 Encounter Start Time: 11:30 Subjective: Minimal streaks of red in BM. Weak and dizzy with standing. - Objective Resuscitation Status: Resuscitation Status FULL:Full Resuscitation MAR Reviewed: Yes Vital Signs & Weight: Vital Signs (12 hours) Temp Pulse Resp BP Pulse Ox 03/13/17 07:57 97.9 F 96 20 133/75 92 L Weight Admit Weight 198 lb 3.12 oz Weight 201 lb 0.985 oz Most Recent Monitor Data Heart Rate from ECG 90 NIBP 151/67 NIBP BP-Mean 113 Respiration from ECG 18 SpO2 100 I&O: 03/12/17 03/13/17 03/14/17 06:59 06:59 06:59 Intake Total 2400 2780 Balance 2400 2780 Result Diagrams: 03/13/17 15:35 03/12/17 04:24 Phys Exam - Physical Examination Constitutional: NAD HEENT: moist MMs Respiratory: no wheezing, no rales, no rhonchi Cardiovascular: RRR, no rub loud artificial valve click Gastrointestinal: soft, positive bowel sounds Neurological: non-focal, moves all 4 limbs Psychiatric: normal affect, A&O x 3 Dx/Plan (1) Anemia due to acute blood loss Code(s): D62 - ACUTE POSTHEMORRHAGIC ANEMIA Status: Acute Comment: stable (2) Duodenal ulcer Status: Acute (3) GI bleed Code(s): K92.2 - GASTROINTESTINAL HEMORRHAGE, UNSPECIFIED Status: Resolved Qualifiers: GI bleed type/associated pathology: unspecified gastrointestinal hemorrhage type Qualified Code(s): K92.2 - Gastrointestinal hemorrhage, unspecified (4) HTN (hypertension) Code(s): I10 - ESSENTIAL (PRIMARY) HYPERTENSION Status: Chronic Qualifiers: Hypertension type: essential hypertension Qualified Code(s): I10 - Essential (primary) hypertension (5) Mechanical heart valve present Code(s): Z95.2 - PRESENCE OF PROSTHETIC HEART VALVE Status: Chronic Comment : INR still normal - Plan cont current plan of care Increase coumadin to 10mg daily -: Will transfuse due to patient's symptomatic anemia * . - Discharge Day Encounter end time: 12:00
[2017-03-13] MEDS: Losartan Potassium 25 MG TAB PO SCH (12:35)
[2017-03-13 16:04] LABS: Hematocrit 21.5 % (36.0-47.0)
[2017-03-13] MEDS: Warfarin Sodium 10 MG TAB PO SCH (19:46)
[2017-03-13] MEDS: levETIRAcetam 500 MG TAB PO SCH (20:51)
[2017-03-14] MEDS: Morphine 5 mg/5 ml in 0.9% NaCl/PF SYRINGE SLOW IVP PRN ×5 (02:56→22:05)
[2017-03-14] MEDS: HYDROcodone/Acetaminophen 7.5/325 mg Tablet PO PRN ×3 (04:18→20:50)
[2017-03-14 05:21] LABS: Hematocrit 32.9 % (36.0-47.0)
[2017-03-14 05:27] LABS: PTT 23.1 SEC (22.9-36.1); Prothrombin Time 14.5 SEC (12.0-14.7)
[2017-03-14 05:41] LABS: Calc. Creatinine Clearance 147 mL/min (70-130); Estimated GFR-MDRD Greater than 90
[2017-03-14] MEDS: Losartan Potassium 25 MG TAB PO SCH (07:52)
[2017-03-14] MEDS: Pantoprazole 40 MG VIAL IVP SCH ×2 (07:54→20:51)
[2017-03-14] MEDS: Enoxaparin Sodium 80 MG/0.8 ML SYRINGE SC SCH ×2 (08:00→20:59)
[2017-03-14 14:17] VITALS: BMI 30.5
[2017-03-14] MEDS: Acetaminophen/Codeine 30-300mg Tablet PO PRN (15:53)
--- NOTE | 2017-03-14 19:00 | PDOC.PN ---
- Subjective Encounter Start Date: 03/14/17 Encounter Start Time: 18:57 Subjective: Seen and examined feeling better s/p blood transfusion - Objective Resuscitation Status: Resuscitation Status FULL:Full Resuscitation Vital Signs & Weight: Vital Signs (12 hours) Temp Pulse Resp BP Pulse Ox 03/14/17 08:16 97.6 F 85 20 128/84 100 03/14/17 08:00 97.6 F 85 20 140/79 98 Weight Admit Weight 198 lb 3.12 oz Weight 201 lb 0.985 oz Most Recent Monitor Data Heart Rate from ECG 90 NIBP 151/67 NIBP BP-Mean 113 Respiration from ECG 18 SpO2 100 I&O: 03/13/17 03/14/17 03/15/17 06:59 06:59 06:59 Intake Total 2780 1300 1650 Balance 2780 1300 1650 Result Diagrams: 03/14/17 05:04 03/14/17 05:04 Phys Exam - Physical Examination Constitutional: NAD HEENT: PERRLA, moist MMs, sclera anicteric, TM's clear, oral pharynx no lesions Neck: no nodes, no JVD, supple Respiratory: no wheezing, no rales, no rhonchi Cardiovascular: RRR, no significant murmur, no rub Gastrointestinal: soft, non-tender, no distention, positive bowel sounds Dx/Plan (1) Anemia due to acute blood loss Code(s): D62 - ACUTE POSTHEMORRHAGIC ANEMIA Status: Acute Comment: stable (2) Chronic anticoagulation Code(s): Z79.01 - CUFF SETTER (CURRENT) USE OF ANTICOAGULANTS Status: Acute (3) Duodenal ulcer Status: Acute (4) HTN (hypertension) Code(s): I10 - ESSENTIAL (PRIMARY) HYPERTENSION Status: Chronic Qualifiers: Hypertension type: essential hypertension Qualified Code(s): I10 - Essential (primary) hypertension (5) Mechanical heart valve present Code(s): Z95.2 - PRESENCE OF PROSTHETIC HEART VALVE Status: Chronic Comment : INR still normal (6) Seizure disorder Code(s): G40.909 - EPILEPSY, UNSP, NOT INTRACTABLE, WITHOUT STATUS EPILEPTICUS Status: Chronic - Plan plan discussed w/ family, social service assistant Awaiting therapeutic INR -: Continue coumadin and lovenox -: Dispo planning * .
[2017-03-14] MEDS: levETIRAcetam 500 MG TAB PO SCH (20:50)
[2017-03-14] MEDS: Warfarin Sodium 10 MG TAB PO SCH (20:51)
[2017-03-15] MEDS: Morphine 5 mg/5 ml in 0.9% NaCl/PF SYRINGE SLOW IVP PRN ×5 (02:48→21:26)
[2017-03-15] MEDS: HYDROcodone/Acetaminophen 7.5/325 mg Tablet PO PRN ×3 (05:02→23:40)
[2017-03-15 05:34] LABS: PTT 40.6 SEC (22.9-36.1); Prothrombin Time 17.2 SEC (12.0-14.7)
[2017-03-15] MEDS: Losartan Potassium 25 MG TAB PO SCH (07:56)
[2017-03-15] MEDS: Pantoprazole 40 MG VIAL IVP SCH ×2 (07:56→21:26)
[2017-03-15] MEDS: Enoxaparin Sodium 80 MG/0.8 ML SYRINGE SC SCH ×2 (11:35→21:25)
--- NOTE | 2017-03-15 16:40 | PDOC.PN ---
- Subjective Encounter Start Date: 03/15/17 Encounter Start Time: 16:38 Subjective: seen and examined feeling better - Objective Resuscitation Status: Resuscitation Status FULL:Full Resuscitation Vital Signs & Weight: Vital Signs (12 hours) Temp Pulse Resp BP Pulse Ox 03/15/17 16:16 98.5 F 85 20 137/83 100 03/15/17 11:54 97.8 F 82 20 131/64 100 03/15/17 08:00 97.7 F 82 20 03/15/17 07:50 97.7 F 82 20 133/78 100 Weight Admit Weight 198 lb 3.12 oz Weight 201 lb 0.985 oz Most Recent Monitor Data Heart Rate from ECG 90 NIBP 151/67 NIBP BP-Mean 113 Respiration from ECG 18 SpO2 100 I&O: 03/14/17 03/15/17 03/16/17 06:59 06:59 06:59 Intake Total 1300 2450 Balance 1300 2450 Result Diagrams: 03/14/17 05:04 03/14/17 05:04 Phys Exam - Physical Examination Constitutional: NAD HEENT: PERRLA, moist MMs, sclera anicteric, TM's clear Neck: no nodes, no JVD, supple, full ROM Respiratory: no wheezing, no rales, no rhonchi, clear to auscultation bilateral Cardiovascular: RRR, no significant murmur, no rub Gastrointestinal: soft, non-tender, no distention, positive bowel sounds Musculoskeletal: no edema, pulses present Dx/Plan (1) Anemia due to acute blood loss Code(s): D62 - ACUTE POSTHEMORRHAGIC ANEMIA Status: Acute Comment: stable (2) Chronic anticoagulation Code(s): Z79.01 - HEALTH WORKERS (CURRENT) USE OF ANTICOAGULANTS Status: Acute (3) Duodenal ulcer Status: Acute (4) HTN (hypertension) Code(s): I10 - ESSENTIAL (PRIMARY) HYPERTENSION Status: Chronic Qualifiers: Hypertension type: essential hypertension Qualified Code(s): I10 - Essential (primary) hypertension (5) Mechanical heart valve present Code(s): Z95.2 - PRESENCE OF PROSTHETIC HEART VALVE Status: Chronic Comment : INR still normal (6) Seizure disorder Code(s): G40.909 - EPILEPSY, UNSP, NOT INTRACTABLE, WITHOUT STATUS EPILEPTICUS Status: Chronic - Plan social media marketing specialist awaiting therapeutic INR -: Continue coumadin and lovenox untill therapeutic INR * .
[2017-03-15] MEDS: Warfarin Sodium 10 MG TAB PO SCH (16:56)
[2017-03-15] MEDS: levETIRAcetam 500 MG TAB PO SCH (21:25)
[2017-03-16] MEDS: Morphine 5 mg/5 ml in 0.9% NaCl/PF SYRINGE SLOW IVP PRN ×5 (01:49→19:07)
[2017-03-16 05:28] LABS: Hematocrit 28.9 % (36.0-47.0)
[2017-03-16 05:32] LABS: PTT 46.8 SEC (22.9-36.1)
[2017-03-16 05:48] LABS: Calc. Creatinine Clearance 149 mL/min (70-130); Estimated GFR-MDRD Greater than 90
[2017-03-16] MEDS: Losartan Potassium 25 MG TAB PO SCH (08:59)
[2017-03-16] MEDS: HYDROcodone/Acetaminophen 7.5/325 mg Tablet PO PRN ×2 (08:59→17:13)
[2017-03-16] MEDS: Pantoprazole 40 MG VIAL IVP SCH ×2 (09:01→20:48)
--- NOTE | 2017-03-16 11:59 | PDOC.PN ---
- Subjective Encounter Start Date: 03/16/17 Encounter Start Time: 11:57 Subjective: Seen and examined -in some emotional and physical distress due to the loss -: of her sister - Objective Resuscitation Status: Resuscitation Status FULL:Full Resuscitation Vital Signs & Weight: Vital Signs (12 hours) Temp Pulse Resp BP Pulse Ox 03/16/17 07:16 98.0 F 81 20 127/58 L 100 Weight Admit Weight 198 lb 3.12 oz Weight 201 lb 0.985 oz Most Recent Monitor Data Heart Rate from ECG 90 NIBP 151/67 NIBP BP-Mean 113 Respiration from ECG 18 SpO2 100 I&O: 03/15/17 03/16/17 03/17/17 06:59 06:59 06:59 Intake Total 2450 2600 Output Total 5 Balance 2450 2595 Result Diagrams: 03/16/17 05:12 03/16/17 03:30 Phys Exam - Physical Examination Constitutional: NAD HEENT: PERRLA, moist MMs, sclera anicteric, TM's clear Neck: no nodes, no JVD, supple, full ROM Respiratory: no wheezing, no rales, no rhonchi, clear to auscultation bilateral Cardiovascular: RRR, no significant murmur, no rub Gastrointestinal: soft, non-tender, no distention, positive bowel sounds Dx/Plan (1) Anemia due to acute blood loss Code(s): D62 - ACUTE POSTHEMORRHAGIC ANEMIA Status: Acute Comment: stable (2) Chronic anticoagulation Code(s): Z79.01 - HALFWAY (CURRENT) USE OF ANTICOAGULANTS Status: Acute (3) Duodenal ulcer Status: Acute (4) HTN (hypertension) Code(s): I10 - ESSENTIAL (PRIMARY) HYPERTENSION Status: Chronic Qualifiers: Hypertension type: essential hypertension Qualified Code(s): I10 - Essential (primary) hypertension (5) Mechanical heart valve present Code(s): Z95.2 - PRESENCE OF PROSTHETIC HEART VALVE Status: Chronic Comment : INR still normal (6) Seizure disorder Code(s): G40.909 - EPILEPSY, UNSP, NOT INTRACTABLE, WITHOUT STATUS EPILEPTICUS Status: Chronic - Plan PT/OT, social staff worker, DVT proph w/lovenox INR 1.6--once therapeutic d/c lovenox and d/c home -: Pain management and anxiolytics * .
[2017-03-16] MEDS: Acetaminophen/Codeine 30-300mg Tablet PO PRN (12:41)
[2017-03-16] MEDS: Enoxaparin Sodium 80 MG/0.8 ML SYRINGE SC SCH ×2 (12:42→20:48)
[2017-03-16] MEDS: Lorazepam 1 MG TAB PO PRN ×2 (13:11→17:19)
[2017-03-16] MEDS: Warfarin Sodium 10 MG TAB PO SCH (19:07)
[2017-03-16] MEDS: levETIRAcetam 500 MG TAB PO SCH (20:48)
[2017-03-17 07:12] LABS: PTT 46.1 SEC (22.9-36.1); Prothrombin Time 21.2 SEC (12.0-14.7)
[2017-03-17] MEDS: Losartan Potassium 25 MG TAB PO SCH (09:39)
[2017-03-17] MEDS: Pantoprazole 40 MG VIAL IVP SCH ×2 (09:40→22:13)
[2017-03-17] MEDS: Enoxaparin Sodium 80 MG/0.8 ML SYRINGE SC SCH ×2 (09:40→22:13)
[2017-03-17] MEDS: Morphine 5 mg/5 ml in 0.9% NaCl/PF SYRINGE SLOW IVP PRN ×4 (09:40→22:53)
[2017-03-17] MEDS: Lorazepam 1 MG TAB PO PRN ×4 (10:41→23:09)
[2017-03-17] MEDS: HYDROcodone/Acetaminophen 7.5/325 mg Tablet PO PRN ×2 (12:16→19:59)
--- NOTE | 2017-03-17 14:18 | PDOC.PN ---
- Subjective Encounter Start Date: 03/17/17 Encounter Start Time: 14:16 Subjective: Seen and examined -in less pain today than yesterday - Objective Resuscitation Status: Resuscitation Status FULL:Full Resuscitation Vital Signs & Weight: Vital Signs (12 hours) Temp Pulse Resp BP Pulse Ox 03/17/17 08:00 98.6 F 85 16 100 03/17/17 07:16 98.6 F 85 16 141/90 H 100 Weight Admit Weight 198 lb 3.12 oz Weight 201 lb 0.985 oz Most Recent Monitor Data Heart Rate from ECG 90 NIBP 151/67 NIBP BP-Mean 113 Respiration from ECG 18 SpO2 100 I&O: 03/16/17 03/17/17 03/18/17 06:59 06:59 06:59 Intake Total 2600 500 Output Total 5 Balance 2595 500 Result Diagrams: 03/16/17 05:12 03/16/17 03:30 Phys Exam - Physical Examination Constitutional: NAD HEENT: PERRLA, moist MMs, sclera anicteric, TM's clear, oral pharynx no lesions Neck: no nodes, no JVD, supple, full ROM Respiratory: no wheezing, no rales, no rhonchi Cardiovascular: RRR, no significant murmur, no rub Gastrointestinal: soft, non-tender, no distention, positive bowel sounds Musculoskeletal: no edema, pulses present Dx/Plan (1) Anemia due to acute blood loss Code(s): D62 - ACUTE POSTHEMORRHAGIC ANEMIA Status: Acute Comment: stable (2) Chronic anticoagulation Code(s): Z79.01 - CORRECTION (CURRENT) USE OF ANTICOAGULANTS Status: Acute (3) Duodenal ulcer Status: Acute (4) HTN (hypertension) Code(s): I10 - ESSENTIAL (PRIMARY) HYPERTENSION Status: Chronic Qualifiers: Hypertension type: essential hypertension Qualified Code(s): I10 - Essential (primary) hypertension (5) Mechanical heart valve present Code(s): Z95.2 - PRESENCE OF PROSTHETIC HEART VALVE Status: Chronic Comment : INR still normal (6) Seizure disorder Code(s): G40.909 - EPILEPSY, UNSP, NOT INTRACTABLE, WITHOUT STATUS EPILEPTICUS Status: Chronic - Plan PT/OT, public health social worker INR 1.8-Continue coumadin/lovenox -: D/c lovenox once therapeutic and d/c home -: Pain management with narcotics * .
[2017-03-17] MEDS: Warfarin Sodium 10 MG TAB PO SCH (16:35)
[2017-03-17] MEDS: levETIRAcetam 500 MG TAB PO SCH (22:12)
[2017-03-17] MEDS: Zolpidem Tartrate 5 MG TAB PO PRN (22:14)
[2017-03-18] MEDS: Morphine 5 mg/5 ml in 0.9% NaCl/PF SYRINGE SLOW IVP PRN ×4 (04:27→17:04)
[2017-03-18] MEDS: Lorazepam 1 MG TAB PO PRN ×4 (04:27→12:34)
[2017-03-18] MEDS: Losartan Potassium 25 MG TAB PO SCH (08:36)
[2017-03-18] MEDS: Enoxaparin Sodium 80 MG/0.8 ML SYRINGE SC SCH (08:36)
[2017-03-18] MEDS: Pantoprazole 40 MG VIAL IVP SCH (08:37)
[2017-03-18] MEDS ORDERED: HYDROcodone/Acetaminophen 10/325 mg Tablet PO PRN (10:30)
[2017-03-18] MEDS: HYDROcodone/Acetaminophen 10/325 mg Tablet PO PRN ×2 (10:45→15:50)
[2017-03-18 11:40] LABS: PTT 59.4 SEC (22.9-36.1)
[2017-03-18] MEDS: Warfarin Sodium 10 MG TAB PO SCH (18:09)
[2017-03-18 18:15] VITALS: BP 135/83; TEMP 97.9
--- NOTE | 2017-03-19 00:51 | DIS ---
DATE OF ADMISSION: 03/06/2017 DATE OF DISCHARGE: 03/18/2017 DISCHARGE DIAGNOSES: 1. Status post acute upper gastrointestinal bleed secondary to duodenal ulcer. 2. Chronic anticoagulation with Coumadin secondary to mitral valve prosthesis. 3. Hypokalemia, improved. 4. Acute on chronic macrocytic anemia, status post 3 units of packed red blood cells. 5. Supratherapeutic INR, resolved. 6. Seizure disorder, stable. CONSULTATIONS: Dr. Teran and Dr. Arias with GI service. Dr. Yancey with Pulmonology Service. PERTINENT LABORATORY AND X-RAY FINDINGS: Potassium ranged between 2.9 to 3.9, magnesium 1.9. CBC sh owed hemoglobin ranging between 6.8 to 10.3. INR ranged between 1.1 to 2.1. Abdominal bleeding scan dated 03/06/2017 showed no evidence of active bleed. EGD dated 03/07/2017 showed duodenal ulcer in the second portion of the duodenum without obvious or recent hemorrhage. Colonoscopy showed normal e xam 03/07/2017. HOSPITAL COURSE: The patient was initially admitted after presenting with an acute gastrointestinal bleed, likely upper tract in the context of chronic anticoagulation and supratherapeutic INR. The vaughn perez with recurrent GI bleeds, evaluated by the GI service, undergoing EGD and colonoscopy showing d uodenal ulcer in the second portion of the duodenum. The patient was placed on IV Protonix and disco ntinued on anticoagulation. The patient was monitored with serial H&H's, showing overall improved tr end after transfusion of 3 units of packed red blood cells and 1 unit of fresh frozen plasma. The vaughn perez's hospital course was protracted due to slowly increasing INR with increased Coumadin dosing. The patient overall remained clinically stable through the hospital course, tolerating regular oral i ntake, ambulating without assistance or difficulty and ready for discharge on 03/18/2017. DISCHARGE MEDICATIONS: 1. Lipitor 40 mg 1 tab p.o. daily. 2. Butrans 1 patch transdermally every 7 days. 3. Keppra 1500 mg p.o. daily. 4. Losartan 100 mg p.o. daily. 5. Oxycodone/acetaminophen 7.5/325 mg 1 tab p.o. q.6 h. p.r.n. pain. 6. Protonix 40 mg 1 tab p.o. b.i.d. 7. Topamax 50 mg 1 tab p.o. daily. 8. Coumadin 5 mg 1 tablet p.o. daily, goal INR of 2-3. FOLLOWUP: The patient will follow up with her primary care provider, Dr. Valencia in [facility] within 7 days. CONDITION ON DISCHARGE: Stable. ACTIVITY: Ad perri. DIET: Heart healthy. CODE STATUS: FULL. DISPOSITION: Home, 03/18/2017.
== END 2017-03-18 18:00 | disposition home or self-care (01) | DRG 378 ==
LOC: ERS 08:28 → CCU 09:37 → T4-A 03-10 14:55
PROVIDERS: ADMIT Internal Medicine; ATTEND Internal Medicine
PROC: CW5 Nuclear Medicine, Anatomical Regions, Nonimaging Nuclear Medicine Probe (ICD-10-PCS; 2017-03-12)
PROC: 0DJ08ZZ Inspection of Upper Intestinal Tract, Via Natural or Artificial Opening Endoscopic (ICD-10-PCS; principal; 2017-03-13)
PROC: 0DJD8ZZ Inspection of Lower Intestinal Tract, Via Natural or Artificial Opening Endoscopic (ICD-10-PCS; 2017-03-13)
PROC: 30233N1 Transfusion of Nonautologous Red Blood Cells into Peripheral Vein, Percutaneous Approach (ICD-10-PCS; 2017-03-13)
DX: K26.4 Chronic or unspecified duodenal ulcer with hemorrhage (principal); D62 Acute posthemorrhagic anemia; D68.32 Hemorrhagic disorder due to extrinsic circulating anticoagulants; G40.909 Epilepsy, unspecified, not intractable, without status epilepticus; I10 Essential (primary) hypertension; Z79.01 Long term (current) use of anticoagulants; Z95.2 Presence of prosthetic heart valve; G43.909 Migraine, unspecified, not intractable, without status migrainosus; E87.6 Hypokalemia; D64.9 Anemia, unspecified; T45.515A Adverse effect of anticoagulants, initial encounter
CPT/HCPCS: 36415; 36430; 78278; 80048; 82565; 83735; 85014; 85018; 85025; 85049; 85610; 85730; 86850; 86900; 86901; 96365; 96366; 96375; 96376; A4216; A9604; C9113; J1642; J1650; J2001; J2270; J2405; J2704; J3010; J3480; J7050; P9016; P9048

== ENCOUNTER 2017-05-08 17:30 | Inpatient (IN) | payer BC ==
[2017-05-08] MEDS ORDERED: Ondansetron PF 4 MG/2 ML Vial ONE (18:46)
[2017-05-08] MEDS ORDERED: Fentanyl 100 MCG/2 ML VIAL ONE ×2 (18:46→20:56)
[2017-05-08 19:01] LABS: #Basophils 0.1 thou/uL (0.0-0.2); #Eosinphils 0.1 thou/uL (0.0-0.7); #Lymphocytes 2.4 thou/uL (1.20-3.40); #Monocytes 1.3 thou/uL (0.11-0.59); #Neutrophils 9.8 thou/uL (1.40-6.50); %Basophils 0.6 % (0.0-1.0); %Eosinophils 0.7 % (0.0-10.0); %Lymphocytes 17.7 % (21.0-51.0); %Monocytes 9.3 % (0.0-10.0); %Neutrophils 71.6 % (42.0-75.0); Hemoglobin 10.8 g/dL (12.0-16.0); Mean Corpuscular HGB CONC 33.4 g/dL (32.0-36.0); Mean Corpuscular Hemoglobin 34.4 pg (27.0-31.0); Mean Platelet Volume 7.1 fL (7.4-10.4); Platelet Count 399 thou/uL (130-400); RBC Distribution Width 18.6 % (11.5-14.5); Red Blood Cell (RBC) Count 3.13 mill/uL (4.20-5.40); White Blood Cell (WBC) Count 13.7 thou/uL (4.8-10.8)
[2017-05-08] MEDS ORDERED: Ondansetron ODT 4 MG TAB SL PRN (21:29)
[2017-05-08] MEDS ORDERED: Ondansetron PF 4 MG/2 ML Vial IVP PRN (21:29)
[2017-05-08] MEDS ORDERED: Pantoprazole 80 MG, Admixture Fee 1 EACH in Sodium Chloride 0.9% 100 ML IVP SCH (21:30)
[2017-05-08] MEDS: Fentanyl 100 MCG/2 ML VIAL SLOW IVP PRN (22:44)
[2017-05-08] MEDS ORDERED: Bisacodyl 5 MG TAB PO PRN (23:11)
[2017-05-08] MEDS ORDERED: levETIRAcetam 500 MG TAB PO SCH (23:45)
[2017-05-08] MEDS ORDERED: Topiramate 25 MG TAB PO SCH (23:45)
[2017-05-08] MEDS ORDERED: Atorvastatin Calcium 40 MG TAB PO SCH (23:45)
[2017-05-08] MEDS: Sodium Chloride 0.9% 1,000 ML IV SCH (23:53)
[2017-05-09 00:39] VITALS: BMI 29.5
[2017-05-09] MEDS: Fentanyl 100 MCG/2 ML VIAL SLOW IVP PRN ×3 (02:39→14:58)
--- NOTE | 2017-05-09 03:56 | HP-2 ---
CODE STATUS: FULL. PRIMARY CARE PHYSICIAN: This is a city call, out of town physician in [place], [place]. ATTENDING: Jeffry Alvarez M.D. RESIDENT: Ana María Shell D.O. 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 CHIEF COMPLAINT: Hematemesis. HISTORY OF PRESENT ILLNESS: This is a 47-year-old female with recurrent GI bleed. She was last admitted on 03/11/2017 for a GI bleed, at which time an endoscopy was done and a duodenal ulcer was found in the second portion. At that time, the duodenal ulcer was not treatable endoscopically and GI recommended surgical opinion if rebleed occurred. We also recommended PPI for life. The patient presented today with a 2-day history of hematemesis on Sunday and Sunday with a total of 6 episodes. She has not had any bloody emesis today. She does state that she had two maroon stools over the past week. Her last bowel movement was on Sunday and states that this is normal. She will go for periods of time without having a bowel movement and is supposed to be on a bowel regimen for which she does not take. She has diffuse abdominal pain similar to past episodes; however, she has a new presenting complaint of epigastric pain which is severe unrelenting per patient. The patient states that in February when she was admitted to the hospital, things happened quite quickly and she was afraid that if she did not come into the hospital, she would experience that again, so she was trying to get on top of things. The patient does note that the epigastric pain improves with food. She has been worked up on several occasions for this GI bleeding. She has been admitted here to our hospital 4 times and several other hospitals intermittently between them. She has had H. pylori testing done to include biopsy and urea breath test all of which have been normal. Additionally, she has had a gastrin level checked in the past, which was in the normal range. She denies any use of NSAIDs or alcohol. The patient does endorse a history of anxiety associated with her multitude of medical problems. She also is on Butrans transdermal patch for chronic pain associated with back surgery and arthritis. The patient denies any smoking history or drug use. She was supposed to be on Protonix several months ago; however, she did not start taking them regularly until her last admission in February because she was unable to pick them up from the pharmacy and had not had time to go see her primary care physician. The patient was transferred over from [facility] where a right femoral central line was placed due to difficulty obtaining IV access peripherally. Additionally, a guaiac was positive at that facility. The patient's vital signs have remained stable. She has not been tachycardic, tachypneic or low blood pressures requiring boluses of fluid. PAST MEDICAL HISTORY: 1. History of peptic ulcer disease with last bleed occurring on 03/06/2017. 2. Hypertension. 3. Mitral valve prosthesis. 4. Chronic anticoagulation. 5. Arthritis. 6. Thyroid nodule. 7. Migraine headaches. 8. Seizure disorder. 9. Liver cirrhosis diagnosed in 08/2016 via biopsy. 10. Peripheral vascular disease. 11. Carotid artery stenosis on the right. PAST SURGICAL HISTORY: 1. Multiple EGDs and colonoscopies in the past year. In early 02/2016, she had an endoscopy performed that showed gastric ulcers and duodenal ulcers, at which time cauterization was performed. H. pylori was tested via biopsy which was negative. Additionally, the patient had endoscopy performed by Dr. Nuñez, in late 02/2016, which did not show any evidence of bleed, ulcers were stable at that time. In 02/2017, an endoscopy was performed by Dr. Teran, at which time a duodenal ulcer was found in the second portion, which was not well visualized without obvious stigmata for recent hemorrhage or visible vessels, it was not treatable endoscopically and GI recommended surgery opinion if rebleed occurred as well as PPIs for life. 2. Cholecystectomy. 3. Appendectomy. 4. Hysterectomy for fibroids. 5. Fusion of the spine x2. 6. Left ankle surgery. 7. Open heart surgery, status post mitral valve prosthesis in 2012. 8. Surgery on nose after fracture. ALLERGIES: No known drug allergies; however, the patient cannot take steroids due to interaction with Keppra. MEDICATIONS: 1. Losartan 100 mg daily. 2. Coumadin 5 mg daily. 3. Topamax 50 mg at bedtime. 4. Keppra 1500 mg at bedtime. 5. Protonix 40 mg b.i.d. 6. Lipitor 40 mg daily. 7. Butrans 1 patch transdermally q. 7 days. FAMILY HISTORY: Mother had CVA, father of OR at 59 years of age, daughter with vasculitis and MS. SOCIAL HISTORY: The patient denies tobacco, alcohol, or drug use. REVIEW OF SYSTEMS: A 12-point review of systems was performed to include general, eyes, ENT, respiratory, CV, GI, , skin, MS, neuro and psych all of which were negative except as indicated in the HPI. PHYSICAL EXAMINATION: VITAL SIGNS: Blood pressure 148/116, pulse 79, respiratory rate 18, T-max 98.4 , pulse ox 98% on room air, current weight 86 kilograms. GENERAL: The patient is alert and oriented x3, in no acute distress, well- developed, well-nourished, overweight, and appropriately interactive. EYES: Pupils equally round, reactive to light and accommodation. Extraocular muscles intact. Conjunctivae within normal limits. ENT: Nasal mucosa within normal limits. NECK: Supple. CARDIOVASCULAR: Regular rate and rhythm. No murmurs or gallops. Radial and pedal pulses 2+. RESPIRATORY: Normal effort, no retractions, clear to auscultation bilaterally. SKIN: Warm and dry. No cyanosis or lesions. There is a sternotomy scar as well as several laparoscopic scars in the abdomen from prior surgeries, a right femoral central line is in place. ABDOMEN: Soft and tender to palpation particularly in the epigastric region. Bowel sounds are positive in all four quadrants and there are no masses or distention. EXTREMITIES: No clubbing, cyanosis or edema. MUSCULOSKELETAL: Structure within normal limits. Tone within normal limits. NEUROLOGIC: No focal deficits. Cranial nerves II-XII intact. GCS 15. PSYCHIATRIC: Appropriate. LABORATORY DATA: 1. CBC shows a white blood cell count 13.7, hemoglobin 10.8, hematocrit 32.3, and platelet 399. 2. CMP reveals sodium 137, potassium 3.7, chloride 102, bicarbonate 25, BUN 18 , creatinine 0.8 and glucose of 119, calcium 8.9, total protein 7.1, albumin 4.1 , total bilirubin 0.5, AST 31, ALT 25, alkaline phosphatase 166. 3. PT 34.8, INR 3.3. 4. Lipase 51. 5. UA shows specific gravity greater than 1.030, small blood, 30 protein, small leukocyte esterase, negative nitrites, trace ketones, negative glucose, rbc's 0-2, wbc's 15-20 and bacteria 1+. ASSESSMENT AND PLAN: This is a 47-year-old female with past medical history of recurrent bleed secondary to peptic ulcer disease and presents with hematemesis. 1. Hematemesis, likely secondary to peptic ulcer disease. The patient is admitted to medical floor. Dr. Castañeda was consulted in the emergency department. Per the ED physician, patient was made n.p.o. at midnight with plan for endoscopy tomorrow. INR was checked and found to be 3.3, which is in the therapeutic range for mitral prosthesis with a goal of 2.5 to 3.5. We will hold home Coumadin at this time in preparation for endoscopy. The patient was placed on Protonix drip. We will continue to monitor H and H q.6 hours, next draw to be done with a.m. labs at 3:30. The patient is stable at this time with stable blood pressure. She is not tachycardic or tachypneic and she is otherwise asymptomatic. We will continue pain control with IV pain medications. Also, obtain a CT of the abdomen/pelvis with IV contrast to rule out perforation at this time. Although patient did have a gastrin level checked in 02/2016, which was 29 within normal range, we will repeat a gastrin level during this visit to rule out potential Nora-Camacho syndrome. 2. Mitral valve prosthesis. The patient is on chronic anticoagulation. We will hold Coumadin at this time. INR was 3.3, which is in therapeutic range for mitral valve prosthesis. This is likely contributing to patient's recurrent bleeds; however, she will require chronic anticoagulation due to the mitral valve prosthesis. 3. Seizure disorder. This was diagnosed as a child. The patient states that she has grand mal seizures. We will continue her home medication. 4. Liver cirrhosis. This was diagnosed in 08/2016 via biopsy. The patient has not followed through with a specialist yet at this time in regards to treatment. 5. Migraine headaches. We will continue patient's Topamax bedtime for prophylaxis. 6. Deep venous thrombosis prophylaxis, sequential compression devices. 7. Gastrointestinal prophylaxis, Protonix drip. DISPOSITION AND LENGTH OF HOSPITAL STAY: 2 days. Symptomatic medication will be provided. History and physical exam as well as management discussed with Dr. Jeffry Alvarez. [facility]ALKizzy
[2017-05-09 04:24] LABS: #Basophils 0.1 thou/uL (0.0-0.2); #Eosinphils 0.2 thou/uL (0.0-0.7); #Lymphocytes 2.3 thou/uL (1.20-3.40); #Monocytes 0.7 thou/uL (0.11-0.59); %Basophils 1.1 % (0.0-1.0); %Eosinophils 3.3 % (0.0-10.0); %Lymphocytes 31.6 % (21.0-51.0); %Monocytes 9.5 % (0.0-10.0); %Neutrophils 54.5 % (42.0-75.0); Hemoglobin 9.3 g/dL (12.0-16.0); Mean Corpuscular HGB CONC 32.7 g/dL (32.0-36.0); Mean Corpuscular Hemoglobin 34.1 pg (27.0-31.0); Mean Platelet Volume 6.9 fL (7.4-10.4); Platelet Count 301 thou/uL (130-400); RBC Distribution Width 18.6 % (11.5-14.5); Red Blood Cell (RBC) Count 2.72 mill/uL (4.20-5.40); White Blood Cell (WBC) Count 7.4 thou/uL (4.8-10.8)
--- NOTE | 2017-05-09 06:50 | PDOC.EVN ---
Event Note - Event Note Event Note: Attending H&P I personally evaluated the patient and discussed the management with Dr. Batista. I have reviewed the written H&P and it is repeated by me. I agree with the History, Examination, Assessment and Plan documented above with any addition or exceptions noted below.
--- NOTE | 2017-05-09 07:43 | CT ---
PRELIMINARY REPORT/[facility]/EMERGENCY AFTER HOURS PROCEDURE: EXAM: CT Abdomen and Pelvis With Intravenous Contrast EXAM DATE/TIME: 05/09/2017 12:38 AM CLINICAL HISTORY: 47 years old, female; Pain and signs and symptoms; Nausea and vomiting; Abdominal pain; Epigastric; P rior surgery; Patient HX: Eval for possible perforation. Pt C/O severe epigastric pain, nausea and vo miting. Surical HX of hysterectomy, cholecystectomy and appendectomy according to pt. TECHNIQUE: Axial computed tomography images of the abdomen and pelvis with intravenous contrast. Coronal reformatted images were created and reviewed. CONTRAST: 95 mL of ISOVUE 370 administered intravenously. COMPARISON: No relevant prior studies available. FINDINGS: Lower thorax: No acute findings. Artifact from metallic mitral valve replacement. Sternal wires. ABDOMEN: Liver: Unremarkable. No mass. Gallbladder and bile ducts: Gallbladder not identified - surgical clips present in fossa. No ductal d ilation. Pancreas: Unremarkable. No mass. No ductal dilation. Spleen: Unremarkable. No splenomegaly. Adrenals: Unremarkable. No mass. Kidneys and ureters: Unremarkable. No solid mass. No hydronephrosis. Stomach and bowel: Mild-moderate 5 mm wall thickening second portion of the duodenum with continuous of the surrounding fat. Mild - moderate amount retained stool material throughout areas nondilated co chavo. PELVIS: Bladder: Unremarkable. No mass. Reproductive: Uterus is not identified. ABDOMEN and PELVIS: Intraperitoneal space: Unremarkable. No free air. No significant fluid collection. Bones/joints: Chronic degenerative changes of the lumbar spine. No acute fracture. No dislocation. Soft tissues: Unremarkable. Vasculature: Right common femoral CVL tip in iliac vein. Chronic atherosclerotic calcification of the vasculature. No abdominal aortic aneurysm. Lymph nodes: Unremarkable. No enlarged lymph nodes. IMPRESSION: 1. Mild-moderate 5 mm wall thickening second portion of the duodenum with continuous of the surroundi ng fat. Findings suspicious for duodenitis. Please correlate with patients clinical exam. 2. Findings suggest some degree of constipation. Clinical correlation is recommended. Thank you for allowing us to participate in the care of your patient. Dictated and Authenticated by: Patricia Thao MD 05/09/2017 1:12 AM Central Time ([place] & [place]) FINAL REPORT CT ABDOMEN AND PELVIS WITH IV CONTRAST: Date: 05/09/17 FINDINGS/IMPRESSION: I agree with the preliminary report given by Dr. Patricia Thao of [facility]. POS: TRUMAN
--- NOTE | 2017-05-09 08:23 | PDOC.FM ---
- Subjective Subjective: Pt doing fine overnight. Slept overnight. Denies any nausea or vomiting. Denies any diarrhea or constipation. Denies any recent bloody stools. Denies any weakness or lightheadness. Denies any acute events overnight. No other concerns or complaints at this time. - Objective MAR Reviewed: Yes Vital Signs & Weight: Vital Signs (12 hours) Temp Pulse Resp BP Pulse Ox 05/09/17 04:54 97.8 F 70 14 94/62 99 05/09/17 02:38 84 109/64 05/08/17 23:00 97.8 F 80 18 97 05/08/17 22:45 80 114/64 05/08/17 21:25 97.8 F 85 18 130/79 97 Weight Weight 87.906 kg I&O: 05/08/17 05/09/17 05/10/17 06:59 06:59 06:59 Intake Total 2475 Balance 2475 Result Diagrams: 05/09/17 04:15 Radiology Reviewed by me: Yes Radiology: CT Abdomen: Mild 5mm wall thickening of duodenum. Possibly duodenitis. Correlate clinically. Constipation noted. <Junaid Reddy - Last Filed: 05/09/17 08:21> - Objective Vital Signs & Weight: Vital Signs (12 hours) Temp Pulse Resp BP Pulse Ox 05/09/17 11:31 98.6 F 78 16 97/54 L 100 05/09/17 08:00 98.1 F 71 16 96/56 L 98 05/09/17 04:54 97.8 F 70 14 94/62 99 05/09/17 02:38 84 109/64 Weight Admit Weight 87.906 kg Weight 87.906 kg I&O: 05/08/17 05/09/17 05/10/17 06:59 06:59 06:59 Intake Total 2475 Balance 2475 Result Diagrams: 05/09/17 04:15 05/09/17 11:39 <Ean Saavedra - Last Filed: 05/09/17 12:47> Phys Exam - Physical Examination HEENT: PERRLA, moist MMs, oral pharynx no lesions Neck: no nodes, supple, full ROM Respiratory: no wheezing, no rales, no rhonchi, clear to auscultation bilateral Cardiovascular: RRR, no significant murmur, no rub Gastrointestinal: soft, non-tender, no distention, positive bowel sounds Musculoskeletal: no edema, pulses present Neurological: non-focal, normal sensation, moves all 4 limbs Lymphatic: no nodes Psychiatric: normal affect, A&O x 3 Skin: no rash, normal turgor, cap refill <2 seconds <MaureenJunaid - Last Filed: 05/09/17 08:21> Dx/Plan (1) GI bleed Code(s): K92.2 - GASTROINTESTINAL HEMORRHAGE, UNSPECIFIED Status: Resolved QualifierTitle: GI bleed type/associated pathology: unspecified gastrointestinal hemorrhage type Qualified Code(s): K92.2 - Gastrointestinal hemorrhage, unspecified (2) Gastric ulcer Code(s): K25.9 - GASTRIC ULCER, UNSP ACUTE OR CHRONIC, W/O HEMOR OR PERF Status: Acute (3) Liver cirrhosis Code(s): K74.60 - UNSPECIFIED CIRRHOSIS OF LIVER Status: Acute (4) HTN (hypertension) Code(s): I10 - ESSENTIAL (PRIMARY) HYPERTENSION Status: Chronic QualifierTitle: Hypertension type: essential hypertension Qualified Code( s): I10 - Essential (primary) hypertension (5) Mechanical heart valve present Code(s): Z95.2 - PRESENCE OF PROSTHETIC HEART VALVE Status: Chronic (6) Seizure disorder Code(s): G40.909 - EPILEPSY, UNSP, NOT INTRACTABLE, WITHOUT STATUS EPILEPTICUS Status: Chronic (7) Hx of migraine headaches Code(s): Z86.69 - PERSONAL HISTORY OF DIS OF THE NERVOUS SYS AND SENSE ORGANS Status: Acute (8) Anemia Code(s): D64.9 - ANEMIA, UNSPECIFIED Status: Acute QualifierTitle: Anemia type: unspecified type Qualified Code(s): D64.9 - Anemia, unspecified - Plan Plan: 1) Hematemesis likely 2/2 Gastric Ulcer -Pt had an episode of throwing up blood a day ago. Has hx of recurrent gastric ulcers. Has been tx for this in past. -Has not had any vomiting or sign of bleed since admission -GI- Dr. Castañeda consulted- will follow recs -Plan for EGD today -On protonix drip -CT abdomen shows possible duodenitis. Possibly start abx therapy. Could be related to ulcer. 2) Liver Cirrhosis -Dx with Cirrhosis on 09/09 on biopsy. Has not had follow up. -GI consulted -CMP pending. 3) Mitral Valve Prosthesis -Was on coumadin for anticoagulation. INR 3.3. In therapeutic range. -Holding tx for now as likely leading to increased risks of bleeds. -Will need to f/u with 4 h youth development specialist for possible medication recommendations 4)HTN -Blood pressure low. Will hold medication at this time. Likely related to bleed. 5) Macrocytic Anemia likely 2/2 blood loss -Will continue to monitor with daily CBC -Folate borderline low at previous visit. will check RBC folate at this time. May need supplementation -plan as above for GI bleed 6)Hx Migraine Headaches -continue home meds 7)DVT ppx- SCD <Junaid Reddy - Last Filed: 05/09/17 08:21> Attending Addendum - Attending Addendum I personally evaluated the patient and discussed the management with Dr. Reddy. I agree with the History, Examination, Assessment and Plan documented above with any addition or exceptions noted below. No current evidence of GI bleeding. Hgb stable. GI consult pending. May need surgical consult due to this recurrent GI bleed on anticoagulation. Monitor INR but keep appropriate for now given her history of mitral valve replacement. Protonix 40mg IV BID restarted until evaluated by GI. <Ean Saavedra - Last Filed: 05/09/17 12:47>
[2017-05-09] MEDS ORDERED: Losartan 25 MG TAB PO SCH (09:00)
[2017-05-09] MEDS ORDERED: FLU VACC QS2017-18 36 mo. & older 0.5 ML SYRINGE IM ONE (09:00)
[2017-05-09] MEDS ORDERED: Non-Formulary Item 1 EACH (Losartan Potassium [Losartan Potassium] 100 MG) PO SCH (09:00)
[2017-05-09] MEDS: Sodium Chloride 0.9% 1,000 ML IV SCH ×2 (09:36→18:40)
[2017-05-09] MEDS: levETIRAcetam 500 mg/5 ml Oral Solution PO SCH ×2 (09:38→20:36)
[2017-05-09 12:14] LABS: ALT (SGPT) 72 U/L (8-55); AST (SGOT) 62 U/L (5-34); Albumin 3.5 g/dL (3.5-5.0); Alkaline Phosphatase 207 U/L (40-150); Anion Gap 9 mmol/L (10-20); BUN (Urea Nitrogen) 10 mg/dL (7.0-18.7); Bilirubin, Total 0.4 mg/dL (0.2-1.2); Calc. Creatinine Clearance 134 mL/min (70-130); Calcium 8.6 mg/dL (7.8-10.44); Carbon Dioxide 27 mmol/L (22-29); Chloride 108 mmol/L (98-107); Estimated GFR-MDRD 88; Globulin 2.3 g/dL (2.4-3.5); Glucose 106 mg/dL (70-105); Protein, Total 5.8 g/dL (6.0-8.3); Sodium 140 mmol/L (136-145)
[2017-05-09] MEDS ORDERED: ePHEDrine/0.9% NaCl/PF SYRINGE 50 mg/10 ml ONE (15:54)
[2017-05-09] MEDS ORDERED: PHENYLEPHRINE-NS 100 MCG/ML 10 ML SYRINGE ONE (15:54)
[2017-05-09] MEDS ORDERED: PROPOFOL 200 MG/20 ML VIAL ONE (15:54)
[2017-05-09] MEDS ORDERED: Lidocaine 1% PF 5 ML VIAL ONE (15:54)
[2017-05-09] MEDS ORDERED: ISOVUE-370 76%-LOCM 1 ML ONE (16:50)
--- NOTE | 2017-05-09 17:04 | CON ---
DATE OF CONSULTATION: 05/09/2017 REASON FOR CONSULTATION: Hematemesis. CONSULTING PHYSICIAN: Dr. Louise Kim. HISTORY OF PRESENT ILLNESS: The patient is a 47-year-old female with past medical history of seizure disorder, hypertension, mechanical mitral valve and gastrointestinal bleeding secondary to gastric a nd duodenal ulcers, presenting with complaints of hematemesis. She states that she was in her usual state of health after her recent discharge from the hospital until approximately 48 hours ago when lydia hernández began to experience increased midepigastric abdominal pain. This abdominal pain was characterized as cramping type pain, 8-10/10 in severity, generalized to the entire abdomen with increased soreness in the midepigastric region. Her pain was better with eating food or liquids and worst with not eat ing, consumption of tomatoes and spicy, greasy foods. Shortly after the appearance of her increased abdominal pain, she began to experience hematemesis in the form of vomiting bright red blood with bonnie roximately 6 episodes as an outpatient, which prompted her to seek medical attention at [facility]. She also endorses the appearance of 2 maroon colored stools over the last week, but more nor mal bowel habits within the last 48 hours. Of note, upon discharge, she was prescribed pantoprazole 40 mg b.i.d., which she had been taking faithfully as well as avoidance of all NSAIDs. Of note, during her last hospitalization, she was noted to have a duodenal ulcer without any high ris k stigmata of bleeding that was not endoscopically intervened upon prior testing, before that yielded a negative H. pylori as well as negative gastrin level for possible gastrinoma. REVIEW OF SYSTEMS: A 10 category review of systems was obtained with all responses negative except f or the pertinent positives as listed in the HPI. PAST MEDICAL HISTORY: As per HPI. PAST SURGICAL HISTORY: Multiple EGDs and colonoscopies within the last year, cholecystectomy, append ectomy, hysterectomy, back surgery with fusion x2, left ankle surgery, mitral valve prosthesis and rh inoplasty. OUTPATIENT MEDICATIONS: Losartan, Coumadin, Topamax, Keppra, Protonix, Lipitor and Butrans 1 patch t ransdermally every 7 days. ALLERGIES: No known drug allergies. FAMILY HISTORY: Cerebrovascular accident (mother), coronary artery disease (father), vasculitis and multiple sclerosis (daughter), lupus (sister). SOCIAL HISTORY: Denies any tobacco, alcohol or illicit drug use. PHYSICAL EXAMINATION: VITAL SIGNS: Temperature of 98.6, pulse 78, blood pressure 97/54, respiratory rate 16, satting 100% on room air. GENERAL: The patient is lying in bed comfortably, in no acute distress. NECK: Supple. No JVD noted. CARDIOVASCULAR: Regular rate and rhythm with a loud S2. No discernible murmurs, gallops or rubs. RESPIRATORY: Clear to auscultation bilaterally with no discernible wheezes or rales. ABDOMEN: Normoactive bowel sounds, soft, nondistended. Tenderness to palpation in the mid epigastri c, periumbilical and right upper quadrants. EXTREMITIES: No cyanosis, clubbing or edema. LABORATORY DATA: CBC with a white blood cell count of 7.4, hemoglobin 9.3, hematocrit 28.4, platelet s 301. Chemistry with a sodium of 140, potassium 4, chloride 108, CO2 of 27, BUN 10, creatinine 0.71 , glucose 106, AST 62, ALT 72, alkaline phosphatase 207, total bilirubin 0.4, albumin 3.5. TSH 0.175 4. IMAGING STUDIES: CT of the abdomen and pelvis obtained on 05/09/2017 showing gallbladder not identif ied with absence of the gallbladder in the gallbladder fossa and mild to moderate 5 mm wall thickenin g in the second portion of the duodenum with continuous fat stranding around this region, otherwise u nremarkable. ASSESSMENT AND PLAN: The patient is a 47-year-old female with past medical history of hypertension, mitral valve prosthesis, osteoarthritis, migraines, seizure disorder, peripheral vascular disease, ri ght carotid arterial stenosis, cirrhosis and duodenal ulcer, presenting with increased midepigastric abdominal pain concerning for recurrence of duodenal ulceration. Midepigastric abdominal pain: The patient is presenting with recurrence of her midepigastric/right u pper quadrant abdominal pain, characterized as cramping/soreness type pain, generalized to the entire abdomen, but most especially within the mid epigastric region. This pain is better with eating and worse with not eating and trigger foods. Given comparison of her symptoms on the previous hospitaliz ation, her current symptoms are very similar to them concerning for recurrence of her duodenal ulcera tion. She has been faithfully taking the pantoprazole twice daily in addition to avoidance of NSAIDs , which could further contribute to duodenal ulceration. At this time, the differential could includ e duodenal ulceration (most likely) gastritis, gastric ulceration, esophagitis or constipation (based on CT scan). RECOMMENDATIONS: 1. We would continue to trend H&H and transfuse as necessary to maintain an H&H of 10/13. 2. We will keep the patient n.p.o. for now with endoscopy. We will plan for later on today. 3. We would continue pantoprazole 40 mg twice daily. 4. We would continue avoidance of all NSAIDs. We will continue to follow. Please call with any questions.
[2017-05-09] MEDS ORDERED: Ondansetron HCl/PF 4 MG/2 ML Vial IVP PRN (17:05)
[2017-05-09] MEDS ORDERED: Promethazine HCl 25 MG/ML VIAL SLOW IVP PRN (17:05)
[2017-05-09] MEDS ORDERED: Promethazine HCl 25 MG/ML VIAL IM PRN (17:05)
[2017-05-09] MEDS ORDERED: Fentanyl 100 MCG/2 ML VIAL ONE (17:16)
--- NOTE | 2017-05-09 17:41 | OP ---
DATE OF PROCEDURE: 05/09/2017 PROCEDURE: Esophagogastroduodenoscopy with control of hemorrhage. INDICATION: Hematemesis, prior history of duodenal ulceration. DESCRIPTION OF PROCEDURE: After the risks and benefits of the procedure including risks of bleeding, infection, perforation, reaction to anesthesia and/ or pain, informed consent was obtained from the patient, at which point the patient was taken to the endoscopy suite where deep sedation was administered via propofol and anesthesia support. The standard gastroscope was then introduced into the mouth with intubation of the esophagus, stomach, and proximal small intestine with the findings listed below. The patient tolerated the procedure well with no immediate perioperative complications. FINDINGS: Esophagus: Normal appearing mucosa was seen in the proximal, mid, and distal esophagus with no evidence of erosions, ulcerations, mass lesions, or active/ recent bleeding. The diaphragmatic pinch and GE junction were both well seen at approximately 42 cm past the incisors. Stomach: Small petechiae like clots were seen scattered in the gastric fundus and body numbering approximately 6-12 clots. Upon irrigation of these clots, there was no other underlying pathology. Otherwise, the gastric mucosa appeared mildly pale in appearance with no evidence of portal hypertensive gastropathy. There was no evidence of erosions, ulcerations, mass lesions, or active/recent bleeding. Extrinsic compression of the stomach was also seen on retroflexion on the lesser curvature, but the overlying mucosa had no abnormalities. Normal findings were seen on gastric retroflexion. Duodenum: Minimal mucosal edema was seen in the duodenal bulb without ulcerations or erosions. However, upon passage of the gastroscope into the second portion of the duodenum, multiple, scattered, small clean based ulcerations were seen along with a significant amount of scar tissue and loss of small bowel folds. Upon advancing the scope to its fullest extent, a 1 cm ulcer was seen in the 2nd portion of the duodenum with a red spot along the inferior aspect of it that was actively oozing blood. A Hemoclip x1 was then employed with placement across the red spot and no further bleeding noted upon deployment of the Hemoclip. Two biopsies were then taken from the other ulcerations noted within the second portion of the small bowel for evaluation of etiology. IMPRESSION: 1. A large 1 cm clean based ulceration was seen within the second portion of the duodenum with a red spot and active oozing of blood now status post Hemoclip x1 with good hemostasis achieved. 2. Scattered ulcerations and significant amount of scar tissue was seen in the second portion of the duodenum consistent with prior ulcerations and active disease. Biopsies x2 were taken from two of these ulcerations. 3. Extrinsic compression along the lesser curvature of the stomach with unknown etiology (not seen on recent CT scan). 4. Petechiae looking clots within the gastric fundus and body concerning for medication gastritis. RECOMMENDATIONS: 1. Follow up with primary inpatient team. 2. We would continue to trend H&H and transfuse as necessary to maintain an H& H of 10/13. 3. We would continue to monitor clinically for signs of active GI bleeding. 4. We would continue patient on pantoprazole 40 mg twice daily. 5. We will follow up on biopsy results. 6. We would hold any anticoagulation for the next 24 hours given the biopsies taken today and recent bleeding, but then consider resumption given her mitral valve prosthesis. 7. We will place the patient on clear liquid diet and advance once no further GI bleeding is established. [facility]
[2017-05-09] MEDS: Morphine 5 MG/ML SYRINGE SLOW IVP PRN ×2 (19:35→23:16)
[2017-05-09] MEDS: Topiramate 25 MG TAB PO SCH (20:37)
[2017-05-09] MEDS: Atorvastatin Calcium 40 MG TAB PO SCH (20:37)
[2017-05-09] MEDS: Pantoprazole 40 MG VIAL IVP SCH (20:38)
[2017-05-09] MEDS ORDERED: levETIRAcetam 500 MG TAB PO SCH (21:00)
[2017-05-10] MEDS: Morphine 5 MG/ML SYRINGE SLOW IVP PRN ×6 (03:36→23:16)
[2017-05-10] MEDS: Sodium Chloride 0.9% 1,000 ML IV SCH ×2 (03:42→07:43)
[2017-05-10 04:32] LABS: INR-International Normal Ratio 1.8; Prothrombin Time 21.7 SEC (12.0-14.7)
--- NOTE | 2017-05-10 05:48 | PDOC.FM ---
- Subjective Subjective: Pt reports she is hungry this morning. Says she is tolerating the clear liquid diet. Just got done having a BM when I entered the room. Denied any blood in the stool. Denied any vomiting overnight. Denied any sign of acute bleed. Pt reports still having some abdominal pain. Denies any fever or chills. Denies any other sx's at this time. No other concerns at this time. - Objective MAR Reviewed: Yes Vital Signs & Weight: Vital Signs (12 hours) Temp Pulse Resp BP Pulse Ox 05/09/17 20:00 98.5 F 81 16 97 05/09/17 19:42 98.5 F 81 16 122/79 97 Weight Admit Weight 87.906 kg Weight 87.906 kg I&O: 05/08/17 05/09/17 05/10/17 06:59 06:59 06:59 Intake Total 2475 Balance 2475 Result Diagrams: 05/10/17 04:10 05/09/17 11:39 Radiology Reviewed by me: Yes <Junaid Reddy - Last Filed: 05/10/17 08:23> - Objective Vital Signs & Weight: Vital Signs (12 hours) Temp Pulse Resp BP Pulse Ox 05/10/17 11:39 77 18 90/57 L 05/10/17 08:00 97.8 F 73 20 05/10/17 07:40 97.8 F 73 20 97/65 99 05/10/17 05:57 97.3 F L 69 18 105/59 L 99 Weight Admit Weight 87.906 kg Weight 87.906 kg I&O: 05/09/17 05/10/17 05/11/17 06:59 06:59 06:59 Intake Total 2475 3000 Balance 2475 3000 Result Diagrams: 05/10/17 04:10 05/09/17 11:39 <Ean Saavedra - Last Filed: 05/10/17 11:40> Phys Exam - Physical Examination HEENT: PERRLA, moist MMs, oral pharynx no lesions Neck: no nodes, supple, full ROM Respiratory: no wheezing, no rales, no rhonchi, clear to auscultation bilateral Cardiovascular: RRR, no significant murmur, no rub Gastrointestinal: soft mildly tender to palpation Musculoskeletal: no edema, pulses present Neurological: non-focal, normal sensation, moves all 4 limbs Lymphatic: no nodes Psychiatric: normal affect Skin: no rash, cap refill <2 seconds <Junaid Reddy - Last Filed: 05/10/17 08:23> Dx/Plan (1) GI bleed Code(s): K92.2 - GASTROINTESTINAL HEMORRHAGE, UNSPECIFIED Status: Acute QualifierTitle: GI bleed type/associated pathology: duodenal ulcer Qualified Code(s): K26.4 - Chronic or unspecified duodenal ulcer with hemorrhage (2) Gastric ulcer Code(s): K25.9 - GASTRIC ULCER, UNSP ACUTE OR CHRONIC, W/O HEMOR OR PERF Status: Chronic QualifierTitle: Gastric ulcer chronicity: chronic Gastric ulcer complication status: without hemorrhage or perforation Qualified Code(s): K25.7 - Chronic gastric ulcer without hemorrhage or perforation (3) Liver cirrhosis Code(s): K74.60 - UNSPECIFIED CIRRHOSIS OF LIVER Status: Acute (4) HTN (hypertension) Code(s): I10 - ESSENTIAL (PRIMARY) HYPERTENSION Status: Chronic QualifierTitle: Hypertension type: essential hypertension Qualified Code( s): I10 - Essential (primary) hypertension (5) Mechanical heart valve present Code(s): Z95.2 - PRESENCE OF PROSTHETIC HEART VALVE Status: Chronic (6) Seizure disorder Code(s): G40.909 - EPILEPSY, UNSP, NOT INTRACTABLE, WITHOUT STATUS EPILEPTICUS Status: Chronic (7) Hx of migraine headaches Code(s): Z86.69 - PERSONAL HISTORY OF DIS OF THE NERVOUS SYS AND SENSE ORGANS Status: Acute (8) Anemia Code(s): D64.9 - ANEMIA, UNSPECIFIED Status: Acute QualifierTitle: Anemia type: unspecified type Qualified Code(s): D64.9 - Anemia, unspecified - Plan Plan: 1) Hematemesis likely 2/2 Gastric Ulcer -Pt had an episode of throwing up blood a few day ago. Has hx of recurrent gastric ulcers. Has been tx for this in past. -Has not had any vomiting or sign of bleed since admission -GI- Dr. Castañeda consulted- will follow recs -EGD performed 05/09. Duodenal ulcer seen with bleed. has since been clipped -Clear liquid diet and advance as tolderated. -On protonix 40 mg BID -CT abdomen shows possible duodenitis. Related to ulcer. 2) Liver Cirrhosis -Dx with Cirrhosis on 09/09 on biopsy. Has not had follow up. -GI consulted -CMP showed elevated AST/ALT and Alk phos yesterday. -Will need to f/u outpatient 3) Mitral Valve Prosthesis -Was on coumadin for anticoagulation. INR 1.8. In subtherapeutic range -Will need to restart tx today due to valve. 4)HTN -Blood pressure low. Will hold medication at this time. Likely related to bleed. 5) Macrocytic Anemia likely 2/2 blood loss -Will continue to monitor with daily CBC -Folate borderline low at previous visit. will check RBC folate at this time. May need supplementation -plan as above for GI bleed 6)Hx Migraine Headaches -continue home meds 7)DVT ppx- SCD 9) Hx Seizures -continue home meds of keppra <Junaid Reddy - Last Filed: 05/10/17 08:23> Attending Addendum - Attending Addendum I personally evaluated the patient and discussed the management with Dr. Reddy. I agree with the History, Examination, Assessment and Plan documented above with any addition or exceptions noted below. Patient doing well. No evidence of active bleeding though her Hgb did drop somewhat. Continue to trend and monitor. Clear diet until advanced by GI. Hope to resume warfarin tonight if no bleeding evident. <Ean Saavedra - Last Filed: 05/10/17 11:40>
[2017-05-10 06:50] LABS: #Basophils 0.1 thou/uL (0.0-0.2); #Eosinphils 0.4 thou/uL (0.0-0.7); #Lymphocytes 2.4 thou/uL (1.20-3.40); #Monocytes 0.6 thou/uL (0.11-0.59); #Neutrophils 3.2 thou/uL (1.40-6.50); %Basophils 0.8 % (0.0-1.0); %Eosinophils 5.5 % (0.0-10.0); %Lymphocytes 36.4 % (21.0-51.0); %Monocytes 9.1 % (0.0-10.0); %Neutrophils 48.2 % (42.0-75.0); Hemoglobin 8.5 g/dL (12.0-16.0); Mean Corpuscular HGB CONC 32.3 g/dL (32.0-36.0); Mean Platelet Volume 7.2 fL (7.4-10.4); Platelet Count 304 thou/uL (130-400); RBC Distribution Width 18.9 % (11.5-14.5); Red Blood Cell (RBC) Count 2.51 mill/uL (4.20-5.40); White Blood Cell (WBC) Count 6.7 thou/uL (4.8-10.8)
[2017-05-10] MEDS: levETIRAcetam 500 mg/5 ml Oral Solution PO SCH (07:33)
[2017-05-10] MEDS: Pantoprazole 40 MG VIAL IVP SCH ×2 (07:41→20:08)
[2017-05-10 15:31] LABS: Folate,Hemolysate 388.9 ng/mL (Not Estab.); RBC Folate Test Component 1389 ng/mL (>498)
[2017-05-10 15:51] LABS: Hemoglobin 8.7 g/dL (12.0-16.0); Platelet Count 330 thou/uL (130-400)
[2017-05-10] MEDS: Warfarin Sodium 5 MG TAB PO SCH (17:30)
[2017-05-10] MEDS: levETIRAcetam 500 MG TAB PO SCH (20:07)
[2017-05-10] MEDS: Topiramate 25 MG TAB PO SCH (20:08)
[2017-05-10] MEDS: Atorvastatin Calcium 40 MG TAB PO SCH (20:08)
[2017-05-11] MEDS: Morphine 5 MG/ML SYRINGE SLOW IVP PRN ×3 (03:18→11:51)
[2017-05-11 03:58] LABS: Hemoglobin 8.6 g/dL (12.0-16.0); Mean Corpuscular HGB CONC 32.8 g/dL (32.0-36.0); Mean Corpuscular Hemoglobin 34.4 pg (27.0-31.0); Mean Platelet Volume 6.8 fL (7.4-10.4); Platelet Count 295 thou/uL (130-400); RBC Distribution Width 18.9 % (11.5-14.5); Red Blood Cell (RBC) Count 2.51 mill/uL (4.20-5.40); White Blood Cell (WBC) Count 8.4 thou/uL (4.8-10.8)
[2017-05-11 04:02] LABS: INR-International Normal Ratio 1.5; Prothrombin Time 18.4 SEC (12.0-14.7)
--- NOTE | 2017-05-11 05:38 | PDOC.FM ---
- Subjective Subjective: Pt reports still having some abdominal pain. Says pain medication is working some. Says she might need a higher dose. Denies any vomiting, diarrhea, constipation overnight. Denies any bleeding in stool. Reports tolerating diet. Denies any acute events overnight. - Objective Vital Signs & Weight: Vital Signs (12 hours) Temp Pulse Resp BP Pulse Ox 05/10/17 20:00 98.3 F 78 18 99 05/10/17 19:25 98.3 F 78 18 134/82 99 Weight Admit Weight 87.906 kg Weight 87.906 kg I&O: 05/09/17 05/10/17 05/11/17 06:59 06:59 06:59 Intake Total 2475 3000 1220 Balance 2475 3000 1220 Result Diagrams: 05/11/17 03:40 05/09/17 11:39 Radiology Reviewed by me: Yes (no new images to review) <Junaid Reddy - Last Filed: 05/11/17 08:58> - Objective Vital Signs & Weight: Vital Signs (12 hours) Temp Pulse Resp BP Pulse Ox 05/11/17 08:00 98.5 F 75 16 05/11/17 07:38 98.5 F 75 16 124/60 98 Weight Admit Weight 87.906 kg Weight 87.906 kg I&O: 05/10/17 05/11/17 05/12/17 06:59 06:59 06:59 Intake Total 3000 1220 Balance 3000 1220 Result Diagrams: 05/11/17 03:40 05/09/17 11:39 <Shy Perez - Last Filed: 05/11/17 12:06> Phys Exam - Physical Examination HEENT: PERRLA, moist MMs, oral pharynx no lesions Neck: no nodes, supple, full ROM Respiratory: no wheezing, no rales, no rhonchi, clear to auscultation bilateral Cardiovascular: RRR, no significant murmur, no rub Gastrointestinal: soft, no distention, positive bowel sounds moderately tender in the epigastric area Musculoskeletal: no edema, pulses present Neurological: non-focal, normal sensation, moves all 4 limbs Lymphatic: no nodes Psychiatric: normal affect Skin: no rash, cap refill <2 seconds <Junaid Reddy - Last Filed: 05/11/17 08:58> Dx/Plan (1) GI bleed Code(s): K92.2 - GASTROINTESTINAL HEMORRHAGE, UNSPECIFIED Status: Acute QualifierTitle: GI bleed type/associated pathology: duodenal ulcer Qualified Code(s): K26.4 - Chronic or unspecified duodenal ulcer with hemorrhage (2) Gastric ulcer Code(s): K25.9 - GASTRIC ULCER, UNSP ACUTE OR CHRONIC, W/O HEMOR OR PERF Status: Chronic QualifierTitle: Gastric ulcer chronicity: chronic Gastric ulcer complication status: without hemorrhage or perforation Qualified Code(s): K25.7 - Chronic gastric ulcer without hemorrhage or perforation (3) Liver cirrhosis Code(s): K74.60 - UNSPECIFIED CIRRHOSIS OF LIVER Status: Acute (4) HTN (hypertension) Code(s): I10 - ESSENTIAL (PRIMARY) HYPERTENSION Status: Chronic QualifierTitle: Hypertension type: essential hypertension Qualified Code( s): I10 - Essential (primary) hypertension (5) Mechanical heart valve present Code(s): Z95.2 - PRESENCE OF PROSTHETIC HEART VALVE Status: Chronic (6) Seizure disorder Code(s): G40.909 - EPILEPSY, UNSP, NOT INTRACTABLE, WITHOUT STATUS EPILEPTICUS Status: Chronic (7) Hx of migraine headaches Code(s): Z86.69 - PERSONAL HISTORY OF DIS OF THE NERVOUS SYS AND SENSE ORGANS Status: Acute (8) Anemia Code(s): D64.9 - ANEMIA, UNSPECIFIED Status: Acute QualifierTitle: Anemia type: other cause Other causes of anemia: other cause, not classified Qualified Code(s): D64.89 - Other specified anemias - Plan Plan: 1) Hematemesis 2/2 Duodenal Ulcer -Pt had an episode of throwing up blood a few day ago. Has hx of recurrent gastric ulcers. Has been tx for this in past. -Has not had any vomiting or sign of bleed since admission -GI- Dr. Castañeda consulted- will follow recs -EGD performed 05/09. Duodenal ulcer seen with bleed. has since been clipped -Clear liquid diet and advance as tolderated. -On protonix 40 mg BID -CT abdomen shows possible duodenitis. Related to ulcer. 2) Liver Cirrhosis -Dx with Cirrhosis on 09/09 on biopsy. Has not had follow up. -GI consulted -CMP showed elevated AST/ALT and Alk phos yesterday. -Will need to f/u outpatient 3) Mitral Valve Prosthesis -Was on coumadin for anticoagulation. INR 1.5 today. In subtherapeutic range -Coumadin restarted at her regular dose last night. Will continue anticoagulation 4)HTN -Blood pressure low. Will hold medication at this time. Likely related to bleed. 5) Macrocytic Anemia likely 2/2 blood loss -Hgb 8.6 this morning. staying within stable range right now. -Will continue to monitor with daily CBC -Folate borderline low at previous visit. RBC folate normal -plan as above for GI bleed 6)Hx Migraine Headaches -continue home meds 7)DVT ppx- SCD 9) Hx Seizures -continue home meds of keppra <Junaid Reddy - Last Filed: 05/11/17 08:58> Attending Addendum - Attending Addendum I personally evaluated the patient and discussed the management with Dr. Reddy I agree with the History, Examination, Assessment and Plan documented above with any addition or exceptions noted below- Patient c/o epigastric pain; relieved with morphine. Tolerating regular diet. No BM. Afebrile VSS. A/P: 1) Duodenal ulcer with hemorrhage s/p clip- H/H stable; continue protonix. 2) Mitral valave prosthesis- restarted on warfarin yesterday; no evodence of bleeding. Continue to monitor through today. Probable discharge tomorrow. <Shy Perez - Last Filed: 05/11/17 12:06>
[2017-05-11] MEDS: levETIRAcetam 500 MG TAB PO SCH ×2 (07:01→20:12)
[2017-05-11] MEDS: Pantoprazole 40 MG VIAL IVP SCH ×2 (08:01→20:12)
--- NOTE | 2017-05-11 11:48 | PQF ---
LIZET CATALANPEYTON [id number] [facility] [id number] CLINICAL DOCUMENTATION IMPROVEMENT CLARIFICATION FORM: ICD-10 Updated PLEASE DO AN ADDENDUM TO THE PROGRESS NOTE WITH ANY DOCUMENTATION UPDATES OR ADDITIONS AND CARRY THROUGH TO DC SUMMARY. THANK YOU. DATE: 05-11-17 ATTN: DR. PEYTON DOMINGUEZ / DR. DANY Cruz Please exercise your independent, professional judgment in responding to the clarification form. Clinical indicators are provided on the bottom of this form for your review Please check appropriate box(s): [ x] Acute blood loss anemia [ ] Anemia: [ ] Aplastic [ ] Nutritional [ ] Drug induced (specify) ___ [ ] Chronic Anemia: [ ] Blood loss [ ] Hemolytic [ ] Simple [ ] Due to Vitamin B12 Deficiency [ ] Other [ ] Anemia of Chronic Disease (please specify) [ ] Other diagnosis [ ] Unable to determine For continuity of documentation, please document condition throughout progress notes and discharge summary. Thank You. CLINICAL INDICATORS - SIGNS / SYMPTOMS / LABS 2-14 ATTENDING PN: MACROCYTIC ANEMIA LIKELY D/T BLOOD LOSS HEMATEMESIS LIKELY D/T GASTRIC ULCER 2-14 EGD OP NOTE: ULCER DUODENUM W/ RED SPOT AND ACTIVE OOZING OF BLOOD - S/P HEMOCLIP LABS: HGB HCT 2-13 10.8 32.3 2-14 9.3 28.4 2-15 8.5 26.4 2-16 8.6 26.2 RISK FACTORS H&P: HEMATEMESIS HX OF PEPTIC ULCER DX W/ BLEEDING CHRONIC ANTICOAGULATION LIVER CIRRHOSIS GI BLEED TREATMENTS: GI CONSULT CT ABD/PELVIS EGD W/ HEMOCLIP THANK YOU, TOYA (This form is maintained as a part of the permanent medical record) 2014 [email or web address]. All Rights Reserved Toya Sage RN, BS [email or web address] [employer] [facility]
--- NOTE | 2017-05-11 11:49 | PQF ---
LIZET CATALAN KURTIS *r [id number] [facility]-A- 4405 [id number] CLINICAL DOCUMENTATION IMPROVEMENT CLARIFICATION FORM: ICD-10 Updated PLEASE DO AN ADDENDUM TO THE PROGRESS NOTE WITH ANY DOCUMENTATION UPDATES OR ADDITIONS AND CARRY THROUGH TO DC SUMMARY. THANK YOU. DATE: 05-11-17 ATTN: DR. PEYTON DOMINGUEZ / DR. DANY Cruz Please exercise your independent, professional judgment in responding to the clarification form. Clinical indicators are provided on the bottom of this form for your review Please check appropriate box(s) to clarify if the following diagnosis has been ruled in our ruled out: UTI [ ] Ruled in diagnosis [ ] Continue to treat [ ] Resolved [x ] Ruled out diagnosis [ ] Cannot rule out diagnosis [ ] Other diagnosis [ ] Unable to determine For continuity of documentation, please document condition throughout progress notes and discharge summary. Thank You. CLINICAL INDICATORS - SIGNS / SYMPTOMS / LABS ER: UTI - TRANSFER FROM [facility] URINE AND UA CULTURE SENT AND TREATED W/ ROCEPHIN H&P: UA - SMALL LEUKOCYTE ESTERASE; WBC 15-20 AND BACTERIA 1+ RISK FACTORS H&P: OVERWEIGHT; LIVER DX; GI BLEED TREATMENTS ER: UTI URINE AND UA CULTURE SENT AND TREATED W/ ROCEPHIN IV IN ER THANK YOU, TOYA (This form is maintained as a part of the permanent medical record) 2014 [email or web address] All Rights Reserved Toya Sage RN, [email or web address] Cell [facility]
[2017-05-11] MEDS ORDERED: HYDROcodone/Acetaminophen 5/325 mg Tablet PO PRN (11:54)
[2017-05-11] MEDS: Warfarin Sodium 5 MG TAB PO SCH (16:17)
[2017-05-11] MEDS: Topiramate 25 MG TAB PO SCH (20:12)
[2017-05-11] MEDS: Atorvastatin Calcium 40 MG TAB PO SCH (20:12)
--- NOTE | 2017-05-12 00:13 | PRG ---
DATE OF SERVICE: 05/10/2017 SUBJECTIVE: The patient was actually in the shower for 30 minutes when I went to see her the door. Ultimately, she stated that she has had one stool with maybe a little bit of blood, but she wa s not sure. She was feeling well. She was tolerating liquids. OBJECTIVE: VITAL SIGNS: Temperature 97.8, pulse 73, blood pressure 96/65. LABORATORY DATA: Hemoglobin is 8.5 at 1415 and 8.7 at 1540 on 05/10/2017. 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 B12 was normal 2 years ago and was elevated as well. Folate is normal. Previous ___ __ was normal. ASSESSMENT: Gastrointestinal bleed secondary to persistent ulcer in the distal duodenum. Biopsy juliette wed active superficial erosive duodenitis. No malignancy. CAT scans revealed no evidence of maligna ncy, just recurrent duodenal ulcer. In the past, she had duodenal and gastric ulcers. This was felt all be related to NSAID use at that time. She has been treated with PPIs in the past. At home, she is on Coumadin for her previous valve replacement. She said she was taking pantoprazole at home, bu t it is unclear if she is on this regularly or not. PLAN: At this time, she has no active bleeding. We would use PPIs b.i.d. and we can advance diet as tolerated.
--- NOTE | 2017-05-12 00:46 | PRG ---
DATE OF SERVICE: 05/11/2017 SUBJECTIVE: Ms. Gutierrez has had no further bleeding. She still has some abdominal pain. This has apparently been a fairly chronic issue for her. OBJECTIVE: VITAL SIGNS: Temperature is 98, pulse 75, respirations 16 and blood pressure 124/60. GENERAL: She is eating, talked to the nurses; she has had about 4 Cokes today. ABDOMEN: Soft, mildly tender with no rebound, no guarding. LABORATORY STUDIES: White count 8.4, hemoglobin 8.6, MCV 105 and platelet count is 295. INR is 1.5. AST and ALT are 62 and 72 with alkaline phosphatase of 207. RBC folate was 1389 and normal. On pr evious admission, B12 was 582 on 03/07. Gastrin was 29 on 03/18/2016 and 24 on 05/09/2017. ASSESSMENT AND PLAN: Recurrent gastrointestinal bleeding since the forth endoscopy for Ms. Gutierrez since 02/2016. First endoscopy, she had some small ulcers in stomach and duodenum and to visible ves sels. These were fairly small. Biopsy result is negative. She had a hepatitis panel on admission a s well for elevated MCV and elevated liver function tests, which was negative. She returned and had endoscopy later that month on 03/23/2016 at which time she had a 9 mm white-based ulcer in the antrum of the stomach, 5 mm white-based ulcer in the second portion of the duodenum, some scalloping of the duodenal folds and duodenitis. Biopsies of which revealed no evidence of celiac disease. In 03/10, she had a presentation with GI bleeding, required about 9 units of blood, mostly between [facility] before she got here. At that time, she had duodenal ulcer in the second part of the duoden um, which was not well visualized. She also had a colonoscopy on admission to make sure she was not having any further bleeding sites further down, and she had green fluid coming from her bile duct. I t was recommended at that time if she had further bleeding; consideration of surgical consultation wi ll be made. She was readmitted on 05/08/2017 and had endoscopy on 05/09, at which time she was found to have normal esophagus, some petechial like clots scattered in the fundus of the stomach; other th an this, the stomach was normal. Duodenum, the bulb was normal without ulcers or erosions. Second p ortion had multiple scattered small clean based ulcerations along with significant amount of scar tis liseth and also small folds and then a 1 cm ulcer in the second portion of the duodenum with a red spot that was actually oozing and clipped. The etiology of these recurrent ulcers is unclear. She has de nied any NSAID use at each visit. Although, salicylate levels have been checked. She had gastrin le vels which were normal several times. The issue is that she is on lifelong anticoagulation with Coum ortiz secondary to aortic valve replacement in the past. She has had recurrent bleeds, one of which w as fairly significant with 9 unit transfusion requirement, with now representation with ulceration in the second part of the duodenum with active bleeding from a visible vessel requiring Hemoclip while on PPIs. There needs to be some consideration of surgical therapy. This is in the second part of th e duodenum, although it may be able to be addressed by General Surgery that may necessitate. We will put a modifiable procedure and in light of that, it would be best that she is transferred to a [facility] facility where this is available. Again, I think a surgical evaluation before any discharge is t he most reasonable course in light of the fact that she has had ongoing bleeding despite being on PPI therapies and she has lifelong anticoagulation to make her very high risk for complications of GI he morrhage, morbidity and mortality. I have discussed with the Family Practice, and they are going to pursue transfer with .
--- NOTE | 2017-05-12 06:19 | PDOC.FM ---
- Subjective Subjective: Pt reports doing well. Says pain is being decently managed. Denies any bloody BM. denies any nausea or vomiting. Denies any acute events overnight. Discussed with patient about having to follow up outpatient with General Surgery. Pt got very upset. She said she wasn't going to follow up with them. She said she was here now and should be fixed now. I discussed with her that I presented her case to him in depth and at that time he decided that she was stable enough to come in for further testing and assessment as an outpatient. Patient again said upon discharge she won't follow up or follow our reccomendations and see the General surgeon. - Objective MAR Reviewed: Yes Vital Signs & Weight: Vital Signs (12 hours) Temp Pulse Resp BP Pulse Ox 05/11/17 20:00 98.4 F 85 18 153/77 H 97 Weight Admit Weight 87.906 kg Weight 87.906 kg I&O: 05/10/17 05/11/17 05/12/17 06:59 06:59 06:59 Intake Total 3000 1220 705 Balance 3000 1220 705 Result Diagrams: 05/11/17 03:40 05/09/17 11:39 <Junaid Reddy - Last Filed: 05/12/17 07:20> - Objective Vital Signs & Weight: Vital Signs (12 hours) Temp Pulse Resp BP Pulse Ox 05/12/17 07:40 97.7 F 73 16 124/75 98 Weight Admit Weight 193 lb 12.8 oz Weight 193 lb 12.8 oz I&O: 05/11/17 05/12/17 05/13/17 06:59 06:59 06:59 Intake Total 1220 705 Balance 1220 705 Result Diagrams: 05/12/17 05:40 05/09/17 11:39 <Ahmet Hood - Last Filed: 05/12/17 10:45> Phys Exam - Physical Examination HEENT: PERRLA, moist MMs, sclera anicteric, oral pharynx no lesions Neck: no nodes, supple, full ROM Respiratory: no wheezing, no rales, no rhonchi, clear to auscultation bilateral Cardiovascular: RRR, no significant murmur, no rub Gastrointestinal: soft, no distention, positive bowel sounds Moderately tender to palpation Musculoskeletal: no edema, pulses present Neurological: non-focal, normal sensation, moves all 4 limbs Lymphatic: no nodes Psychiatric: normal affect Skin: no rash, cap refill <2 seconds <MaureenJunaid - Last Filed: 05/12/17 07:20> Dx/Plan (1) GI bleed Code(s): K92.2 - GASTROINTESTINAL HEMORRHAGE, UNSPECIFIED Status: Acute QualifierTitle: GI bleed type/associated pathology: duodenal ulcer Qualified Code(s): K26.4 - Chronic or unspecified duodenal ulcer with hemorrhage (2) Gastric ulcer Code(s): K25.9 - GASTRIC ULCER, UNSP ACUTE OR CHRONIC, W/O HEMOR OR PERF Status: Chronic QualifierTitle: Gastric ulcer chronicity: chronic Gastric ulcer complication status: without hemorrhage or perforation Qualified Code(s): K25.7 - Chronic gastric ulcer without hemorrhage or perforation (3) Liver cirrhosis Code(s): K74.60 - UNSPECIFIED CIRRHOSIS OF LIVER Status: Acute (4) HTN (hypertension) Code(s): I10 - ESSENTIAL (PRIMARY) HYPERTENSION Status: Chronic QualifierTitle: Hypertension type: essential hypertension Qualified Code( s): I10 - Essential (primary) hypertension (5) Mechanical heart valve present Code(s): Z95.2 - PRESENCE OF PROSTHETIC HEART VALVE Status: Chronic (6) Seizure disorder Code(s): G40.909 - EPILEPSY, UNSP, NOT INTRACTABLE, WITHOUT STATUS EPILEPTICUS Status: Chronic (7) Hx of migraine headaches Code(s): Z86.69 - PERSONAL HISTORY OF DIS OF THE NERVOUS SYS AND SENSE ORGANS Status: Acute (8) Anemia Code(s): D64.9 - ANEMIA, UNSPECIFIED Status: Acute QualifierTitle: Anemia type: other cause Other causes of anemia: other cause, not classified Qualified Code(s): D64.89 - Other specified anemias - Plan Plan: ) Hematemesis 2/2 Duodenal Ulcer -Pt had an episode of throwing up blood a few day ago. Has hx of recurrent gastric ulcers. Has been tx for this in past. -Has not had any vomiting or sign of bleed since admission -GI- Dr. Castañeda consulted- will follow recs -EGD performed 05/09. Duodenal ulcer seen with bleed. has since been clipped -Advanced to Regular Diet -GI recommended yesterday she be trasnferred to [place] or [place] for Surgical Evaluation due to recurrent bleeds from ulcers over the last two years. Some visits she has even required multiple units of blood. I talked with the General Surgeon at [facility] in [place]. I discussed the case with him in depth. He said that if she needed a whipple it would be a very intense surgery and would be a big risk as well being on longtime anticoagulation. He also stated at this time patient seemed stable enough that she could come and see him outpatient. He discussed that he thinks they need to do some more in depth studies before they do a surgical procedure. At this time he agreed to see her as an outpatient. Pt was angry and said she wanted to try and be transferred to [place] then if [facility] wouldn't take her. I again talked with transfer center. They said that she would again need to follow up outpatient. They said since her case had been assessed that she likely wouldn't be accepted there as well in [place]. -On protonix 40 mg BID -CT abdomen shows possible duodenitis. Related to ulcer. 2) Liver Cirrhosis -Dx with Cirrhosis on 09/09 on biopsy. Has not had follow up. -GI consulted -CMP showed elevated AST/ALT and Alk phos yesterday. -Will need to f/u outpatient 3) Mitral Valve Prosthesis -Was on coumadin for anticoagulation. -Coumadin restarted at her regular dose last night. Will continue anticoagulation 4)HTN -Blood pressure low. Will hold medication at this time. Likely related to bleed. 5) Macrocytic Anemia likely 2/2 blood loss -Hgb 8.6 yesterday. staying within stable range right now. -Awaiting H&H today to see if staying stable or sign of bleed -Folate borderline low at previous visit. RBC folate normal -plan as above for GI bleed 6)Hx Migraine Headaches -continue home meds 7)DVT ppx- SCD 9) Hx Seizures -continue home meds of keppra <Junaid Reddy - Last Filed: 05/12/17 07:20> Attending Addendum - Attending Addendum I personally evaluated the patient and discussed the management with [Maureen ] I agree with the History, Examination, Assessment and Plan documented above. Pt Hgb has improved today. INR is still subtherapeutic. But will continue warfarin therapy and will have her see her PCP for checks next week. [facility] General Surgery recommended outpt f/u. Pt states she does not want to f/u with them outpatient. At this time patient is stable with discharge. Pending recs from GI will be okay to d/c today. <Ahmet Hood - Last Filed: 05/12/17 10:45>
[2017-05-12 06:25] LABS: INR-International Normal Ratio 1.4; Prothrombin Time 17.3 SEC (12.0-14.7)
[2017-05-12 07:41] VITALS: BP 124/75; TEMP 97.7
[2017-05-12 08:27] LABS: Hemoglobin 9.7 g/dL (12.0-16.0); Mean Corpuscular HGB CONC 33.4 g/dL (32.0-36.0); Mean Corpuscular Hemoglobin 34.9 pg (27.0-31.0); Mean Platelet Volume 7.4 fL (7.4-10.4); Platelet Count 351 thou/uL (130-400); Red Blood Cell (RBC) Count 2.77 mill/uL (4.20-5.40); White Blood Cell (WBC) Count 8.3 thou/uL (4.8-10.8)
--- NOTE | 2017-05-12 09:40 | PRG ---
DATE OF SERVICE: 05/12/2017 SUBJECTIVE: The patient complains of abdominal pain. She reports she is still having loose red stoo ls. She has had no nausea or vomiting. OBJECTIVE: VITAL SIGNS: Temperature is 97.7, pulse 73, respiratory rate 16, blood pressure 124/75. CHEST: Clear. CARDIOVASCULAR: Regular rate and rhythm. ABDOMEN: Benign. LABORATORY DATA: Shows hemoglobin 9.7, hematocrit 29.0 with MCV of 105. PT is 17.3 with an INR of 1 .4. Chemistries show chloride 108, BUN of 10, creatinine 0.7, glucose 106, AST 62, ALT 72, and alkal ine phosphatase 207. ASSESSMENT: 1. Recurrent duodenal ulcer. 2. Gastrointestinal bleed secondary to #1. 3. Anemia secondary to gastrointestinal blood loss. 4. Abdominal pain. 5. Mitral valve replacement. RECOMMENDATIONS: 1. Continue PPI. 2. Serial hemoglobin and hematocrit. 3. Agree with plans for transfer per Dr. Castañeda.
[2017-05-12] MEDS: levETIRAcetam 500 MG TAB PO SCH (09:47)
[2017-05-12] MEDS: Pantoprazole 40 MG VIAL IVP SCH (09:47)
[2017-05-12] MEDS: Warfarin Sodium 5 MG TAB PO SCH (17:35)
--- NOTE | 2017-05-15 08:31 | DIS-2 ---
DATE OF ADMISSION: 05/08/2017 DATE OF DISCHARGE: 05/12/2017 CONSULTATIONS: GI, Dr. Arias and Dr. Castañeda. PROCEDURES: An EGD which showed a large 1 cm clean base ulceration was seen in the second portion of the duodenum with a red spot and active oozing of blood, now status post Hemoclip x1 with good hemos tasis, scattered ulcerations and significant amount of scar tissue seen in the second portion of the duodenum consistent with prior ulcerations and active disease. Biopsies x2 taken and confirmed compr ession along the lesser curvature of the stomach with unknown etiology and petechia looking clots wit hin the gastric fundus and body concerning for medication gastritis. Biopsy specimen showed active superficially erosive duodenitis, a drug induced injury, especially NSA IDs. Other imaging; abdomen and pelvis CT showed mild to moderate 5 mm wall thickening second portion of t he duodenum and continuous surrounding fat. Findings suggestive of duodenitis. 2) Findings suggest veronica of some degree of constipation. Clinical correlation is recommended. PRIMARY DISCHARGE DIAGNOSES: 1. Acute gastrointestinal bleed secondary to duodenal ulcer. 2. Liver cirrhosis. 3. Hypertension. 4. Mechanical heart valve present. 5. Seizure disorder. 6. History of migraine headaches. 7. Anemia due to acute blood loss. DISCHARGE MEDICATIONS: Atorvastatin 40 mg p.o. daily, Butrans 1 patch TD every 7 days, Keppra 1500 m g p.o. daily, losartan 20 mg p.o. daily, Percocet 1 tablet p.o. q.6h., Protonix 40 mg p.o. b.i.d., to piramate 50 mg p.o. daily, warfarin 5 mg p.o. daily and Tylenol #3 as needed for pain. HISTORY OF PRESENT ILLNESS/HOSPITAL COURSE: This is a 47-year-old female with a history of recurrent GI bleed, last admitted on 03/11/2017 for GI bleed. She came in reporting history of vomiting blood . She said that she had a 2-day history of hematemesis on Sunday and Sunday with a total of 6 episod es. Denies any blood in her stools. She came in that she was concerned due to the bleed. Came in, her hemoglobin was 10.8. We checked it again on 05/09/2017 in the morning and it would be trending d own to 9.3 and then on the she went down for an EGD in which they found the bleeding duodenal ul cer which was clipped by Dr. Arias. The patient is complicated by having a mitral valve prosthesis w hich she needs lifetime anticoagulation for and at this time we stopped her warfarin for a couple of days. Clipped the ulcer. On the , we restarted the warfarin after 24 hours post the endoscopy. On the her hemoglobin trended down to 8.5. We checked it later that day, found to be up to 8. 7, on the it was 8.6 and on discharge 05/12/2017 hemoglobin was found to be 9.7, will be trendin g up. Her MCV was a little elevated at 103-104. Her B12 on passage was fine. We checked a RBC, fo late, it was normal as well, likely macrocytic due just after the pump output due to recurrent GI ble eds. During this time, the patient transitioned to p.o. diet after EGD and did well. GI continued t o follow along with her. On Sunday they recommended that possibly with all her history of recurrent GI bleeds and all the presentation in the duodenum, they recommended possibly transferring her somewh ere where she could be considered for a Whipple procedure, at least removal of the area of inflammati on. At this time we called [facility] and talked with the surgeon there. On her case she n ever required blood, they did not think this was an acute setting, need to be seen or transferred to the hospital. They gave a number and recommended following up. When talking to the patient with georgina waller, she was very aggressive towards me and was saying that she was not going to follow up with them th at she needed this taken care right away. I discussed with her that this was due to her case and how stable she was, that this could be something that could be followed outpatient and the patient reite rated that she would not follow up outpatient, that she would come back here again to get looked at. It should be noted that the patient may not follow our recommendations and follow up even though she has been given all the resources, the numbers to set up appointments and specialists in [place] are aware of her supposed to come in to be seeing her. Also, since we had to stop her warfarin for a few days, her INR would drop down to 1.8. Restarted her warfarin, it would be 1.5 and 1.4. We disconti nued her on the home dose 5 mg, told her to follow up with her primary care doctor, might need some s upplemental doses to become therapeutic again. Also with her liver cirrhosis we found her liver enzy mes to be 60, AST was 62, ALT of 72, alkaline phosphatase was 207. Again, liver cirrhosis diagnosed in 08/2016, but she has yet to follow up with anybody about this to get this problem worked up as germania diaz. These all could be related. Again, patient was stable for discharge. Hemoglobin continued to tr end up. She never had any weakness. No more bleeding after EGD. Again, the patient needs to follow up with her outpatient doctors, GI and Surgery and primary care. DISPOSITION: Stable. DISCHARGE INSTRUCTIONS: 1. Location: Home. 2. Activity. Activity as tolerated. 3. Diet is a regular diet. 4. Followup: Will need to follow up with her a general surgeon in [place], follow up with her GI do ctor and follow up with her primary care doctor within the next week to get her INR checked.
== END 2017-05-12 17:58 | disposition home or self-care (01) | DRG 378 ==
LOC: ERS 17:30 → T4-A 21:08
PROVIDERS: ADMIT Family Medicine; ATTEND Family Medicine
PROC: 0W3P8ZZ Control Bleeding in Gastrointestinal Tract, Via Natural or Artificial Opening Endoscopic (ICD-10-PCS; principal; 2017-05-09)
PROC: 0DB98ZX Excision of Duodenum, Via Natural or Artificial Opening Endoscopic, Diagnostic (ICD-10-PCS; 2017-05-09)
DX: K26.4 Chronic or unspecified duodenal ulcer with hemorrhage (principal); D62 Acute posthemorrhagic anemia; K74.60 Unspecified cirrhosis of liver; G40.909 Epilepsy, unspecified, not intractable, without status epilepticus; G43.909 Migraine, unspecified, not intractable, without status migrainosus; K29.80 Duodenitis without bleeding; Z87.11 Personal history of peptic ulcer disease; Z79.01 Long term (current) use of anticoagulants; Z79.899 Other long term (current) drug therapy; Z95.2 Presence of prosthetic heart valve
CPT/HCPCS: 74177; 80053; 82747; 82941; 84443; 85025; 85027; 85610; 86850; 86900; 86901; 88305; 96374; 96375; 96376; J2270; C9113; J0696; J2001; J2405; J2704; J3010; J7050

== ENCOUNTER 2017-05-14 10:35 | Emergency (ER) | payer BC ==
[2017-05-14 11:37] LABS: INR-International Normal Ratio 1.5; PTT 27.4 SEC (22.9-36.1); Prothrombin Time 18.8 SEC (12.0-14.7)
[2017-05-14 11:47] LABS: ALT (SGPT) 268 U/L (8-55); AST (SGOT) 165 U/L (5-34); Albumin 3.9 g/dL (3.5-5.0); Alkaline Phosphatase 504 U/L (40-150); Anion Gap 12 mmol/L (10-20); BUN (Urea Nitrogen) 14 mg/dL (7.0-18.7); Bilirubin, Total 1.4 mg/dL (0.2-1.2); Calc. Creatinine Clearance 0 mL/min (70-130); Carbon Dioxide 21 mmol/L (22-29); Chloride 105 mmol/L (98-107); Estimated GFR-MDRD 86; Globulin 3.2 g/dL (2.4-3.5); Glucose 99 mg/dL (70-105); Potassium 3.7 mmol/L (3.5-5.1); Protein, Total 7.1 g/dL (6.0-8.3); Sodium 134 mmol/L (136-145)
[2017-05-14 11:56] LABS: Band 15 % (5-11); Eosinophils 5 % (0-10); Hemoglobin 10.9 g/dL (12.0-16.0); Lymphocytes 18 % (21-51); MDiff Complete? YES; Mean Corpuscular HGB CONC 33.3 g/dL (32.0-36.0); Mean Corpuscular Hemoglobin 34.7 pg (27.0-31.0); Mean Platelet Volume 7.2 fL (7.4-10.4); Monocytes 19 % (0-10); Neutrophil 43 % (42-75); Platelet Count 350 thou/uL (130-400); RBC Distribution Width 18.9 % (11.5-14.5); Red Blood Cell (RBC) Count 3.13 mill/uL (4.20-5.40)
[2017-05-14] MEDS ORDERED: Ondansetron ODT 4 MG TAB ONE (13:06)
== END 2017-05-14 13:27 | disposition home or self-care (01) ==
LOC: ERS 10:35
DX: K92.0 Hematemesis (principal); E78.5 Hyperlipidemia, unspecified; G40.909 Epilepsy, unspecified, not intractable, without status epilepticus; I10 Essential (primary) hypertension
CPT/HCPCS: 36415; 80053; 85025; 85610; 85730; 86850; 86900; 86901; 96372; Q0162

== ENCOUNTER 2017-06-28 15:11 | Emergency (ER) | payer BC ==
[2017-06-28 16:14] LABS: #Basophils 0.1 thou/uL (0.0-0.2); #Eosinphils 0.1 thou/uL (0.0-0.7); #Lymphocytes 2.2 thou/uL (1.20-3.40); #Monocytes 0.6 thou/uL (0.11-0.59); #Neutrophils 5.1 thou/uL (1.40-6.50); %Basophils 1.1 % (0.0-1.0); %Eosinophils 1.4 % (0.0-10.0); %Lymphocytes 26.7 % (21.0-51.0); %Monocytes 7.1 % (0.0-10.0); %Neutrophils 63.7 % (42.0-75.0); Hemoglobin 10.9 g/dL (12.0-16.0); Mean Corpuscular HGB CONC 33.2 g/dL (32.0-36.0); Mean Corpuscular Volume 96.4 fl (81.0-99.0); Mean Platelet Volume 7.3 fL (7.4-10.4); Platelet Count 318 thou/uL (130-400); RBC Distribution Width 13.8 % (11.5-14.5); Red Blood Cell (RBC) Count 3.39 mill/uL (4.20-5.40); White Blood Cell (WBC) Count 8.1 thou/uL (4.8-10.8)
[2017-06-28 16:23] LABS: Bilirubin Negative (Negative); Blood, Urine Negative (Negative); Clarity CLEAR (Clear); Glucose, Urine (Dipstick) Negative (Negative); Leukocyte Negative (Negative); Nitrite Negative (Negative); Protein, Urine (Dipstick) Negative (Neg-Trace); Specific Gravity, Urine 1.034 (1.002-1.036); Urobilinogen 0.2 mg/dL (0.2-1.0)
[2017-06-28 16:40] LABS: ALT (SGPT) 21 U/L (8-55); AST (SGOT) 29 U/L (5-34); Albumin 4.6 g/dL (3.5-5.0); Alkaline Phosphatase 220 U/L (40-150); Anion Gap 15 mmol/L (10-20); BUN (Urea Nitrogen) 20 mg/dL (7.0-18.7); Bilirubin, Total 0.2 mg/dL (0.2-1.2); Calc. Creatinine Clearance 0 mL/min (70-130); Calcium 9.4 mg/dL (7.8-10.44); Carbon Dioxide 23 mmol/L (22-29); Chloride 101 mmol/L (98-107); Estimated GFR-MDRD 36; Globulin 3.4 g/dL (2.4-3.5); Glucose 93 mg/dL (70-105); Lipase 42 U/L (8-78); Potassium 3.7 mmol/L (3.5-5.1); Sodium 135 mmol/L (136-145)
[2017-06-28 16:46] LABS: Prothrombin Time 32.5 SEC (12.0-14.7)
[2017-06-28 16:47] LABS: PTT 56.9 SEC (22.9-36.1)
[2017-06-28 17:24] LABS: Amphetamine Not Detected (NotDetected); Barbiturates Screen Not Detected (NotDetected); Benzodiazepine Screen Not Detected (NotDetected); Cocaine Metabolite Screen Not Detected (NotDetected); Medtox Control Line Valid? VALID (VALID); Medtox Reader # READER 1; Methadone Not Detected (NotDetected); Methamphetamine Not Detected (NotDetected); Opiate Screen Detected (NotDetected); Oxycodone Screen Detected (NotDetected); Phencyclidine (PCP) Not Detected (NotDetected); THC/Cannabinoid Screen Not Detected (NotDetected); Tricyclic Screen Not Detected (NotDetected)
--- NOTE | 2017-07-11 15:06 | EKG ---
Test Reason : Blood Pressure : / mmHG Vent. Rate : 079 BPM Atrial Rate : 079 BPM P-R Int : 154 ms QRS Dur : 078 ms QT Int : 428 ms P-R-T Axes : 009 032 016 degrees QTc Int : 490 ms Normal sinus rhythm Cannot rule out Anterior infarct , age undetermined Abnormal ECG Confirmed by ALECIA CUELLAR ([id number]), editorial clerk LATISHA HENDERSON ([id number]) on 07/11/2017 3:05:31 PM Referred By: Confirmed By:ALECIA CUELLAR
== END 2017-06-28 18:58 | disposition home or self-care (01) ==
LOC: ERS 15:11
DX: R11.2 Nausea with vomiting, unspecified (principal); R10.9 Unspecified abdominal pain; G40.909 Epilepsy, unspecified, not intractable, without status epilepticus; I10 Essential (primary) hypertension; D64.9 Anemia, unspecified; Z87.19 Personal history of other diseases of the digestive system; Z87.891 Personal history of nicotine dependence; Z79.899 Other long term (current) drug therapy; Z79.01 Long term (current) use of anticoagulants
CPT/HCPCS: 80053; 80306; 81003; 83690; 85025; 85610; 85730; 93005; 96360

== ENCOUNTER 2018-10-15 01:16 | Inpatient (IN) | payer BC, MEDICARE ==
[2018-10-15 01:59] LABS: Hemoglobin 9.8 g/dL (12.0-16.0)
[2018-10-15] MEDS ORDERED: Pantoprazole 80 MG, Admixture Fee 1 EACH in Sodium Chloride 0.9% 100 ML IVPB SCH (02:00)
[2018-10-15 02:07] LABS: INR-International Normal Ratio 1.1; PTT 28.9 SEC (22.9-36.1); Prothrombin Time 14.3 SEC (12.0-14.7)
[2018-10-15] MEDS ORDERED: Magnesium 2 GM/50 ML BAG (IN WATER) ONE (02:20)
[2018-10-15] MEDS ORDERED: Morphine 4 MG/ML VIAL ONE (02:52)
[2018-10-15] MEDS ORDERED: Potassium Chloride 20 MEQ TAB PO SCH (03:00)
[2018-10-15] MEDS ORDERED: Lactated Ringer's 1,000 ML IV SCH (04:15)
[2018-10-15] MEDS ORDERED: Ondansetron ODT 4 MG TAB SL PRN (04:16)
[2018-10-15] MEDS ORDERED: Ondansetron PF 4 MG/2 ML Vial IVP PRN ×2 (04:16→10:39)
[2018-10-15 04:46] VITALS: BMI 28.6
[2018-10-15] MEDS ORDERED: Morphine 4 MG/ML VIAL SLOW IVP SCH (10:00)
[2018-10-15] MEDS ORDERED: Acetaminophen 500 MG TAB PO PRN (10:39)
[2018-10-15] MEDS ORDERED: Ondansetron ODT 4 MG TAB PO PRN (10:39)
[2018-10-15] MEDS ORDERED: Pantoprazole 80 MG, Admixture Fee 1 EACH in Sodium Chloride 0.9% 100 ML IVP SCH (10:45)
[2018-10-15] MEDS: Sodium Chloride 0.9% 1,000 ML IV SCH (11:53)
--- NOTE | 2018-10-15 11:55 | HP ---
PRIMARY CARE PROVIDER: Dr. Alex Valencia in [place], [place]. CHIEF COMPLAINT: Blood in the stool. HISTORY OF PRESENT ILLNESS: This is a 48-year-old female, who presented to [facility] Emergency Department in transfer from [facility] after complaining of melena. The patient states she saw dark tarry stool over the last 2 to 3 days and became concerned. She has a strong history of gastric ulcerations with multiple GI bleeds, undergoing multiple endoscopy procedures in the last 3 years. The patient states she has been seen most recently at [facility] in [place], [place], undergoing a recent gastric resection due to multiple gastric bleeding ulcers. The patient continues on Protonix daily as well as her chronic Coumadin therapy. The patient denies any aspirin, alcohol, or NSAID therapy. The patient denies any dietary indiscretion and states she had some associated nausea with one episode of emesis that was nonbloody. The patient's last melena was on 10/14/2018 and her last oral intake was at the same time. The patient also complained of associated cramping abdominal pain, generalized in nature, nonradiating to the groin or lower back. In the emergency room, the patient underwent general evaluation including CT of the abdomen and pelvis showing mild prominence of the right renal collecting system without obstruction. Nonspecific distention of the proximal small bowel loops. No acute process was identified. The patient received IV Zofran, morphine sulfate, potassium chloride, magnesium sulfate, and Protonix infusion with initial hemoglobin noted at 10.4. The patient was transferred to the medical floor for further evaluation. PAST MEDICAL HISTORY: 1. Recurrent gastrointestinal bleeding secondary to duodenal/gastric ulceration. 2. History of hepatic cirrhosis. 3. Hypertension. 4. Chronic anticoagulation with Coumadin secondary to mechanical heart valve. 5. Seizure disorder. 6. Migraine headaches. 7. Chronic pain syndrome with chronic narcotic therapy. 8. Chronic anemia secondary to intermittent blood loss. 9. Mechanical mitral valve. 10. Rheumatoid arthritis. 11. Right carotid artery stenosis. PAST SURGICAL HISTORY: 1. Status post multiple EGDs and colonoscopies. 2. Status post cholecystectomy. 3. Status post appendectomy. 4. Status post hysterectomy secondary to fibroids. 5. Status post lumbar spine fusion x2. 6. Status post left ankle repair. 7. Status post open heart surgery with mitral valve prosthesis in 2012. 8. Status post nasal fracture repair. CURRENT MEDICATIONS: 1. Lipitor 40 mg p.o. daily. 2. Buprenorphine, not currently taking. 3. Klonopin 1 mg p.o. at bedtime. 4. Keppra 1500 mg p.o. daily. 5. Losartan 100 mg p.o. daily. 6. Oxycodone/acetaminophen 7.5/325 mg one tablet p.o. q.6 hours p.r.n. pain. 7. Topamax 50 mg p.o. b.i.d. 8. Coumadin 5 mg p.o. daily. 9. Protonix 40 mg p.o. b.i.d. ALLERGIES: TO STEROIDS. FAMILY HISTORY: Mother with CVA. Father after complications of myocardial infarction at 59 years of age. SOCIAL HISTORY: The patient denies current alcohol, tobacco, or illicit drug use. Remote tobacco and alcohol use. Resides in [place], [place]. Disabled. . REVIEW OF SYSTEMS: CONSTITUTIONAL: Negative for weight loss or gain, ability to conduct usual activities. SKIN: Negative for rash, itching. EYES: Negative for double vision, pain. ENT/MOUTH: Negative for nose bleeding, neck stiffness, pain, tenderness. CARDIOVASCULAR: Negative for palpitations, dyspnea on exertion, orthopnea. RESPIRATORY: Negative for shortness of breath, wheezing, cough, hemoptysis, fever or night sweats. GASTROINTESTINAL: Negative for poor appetite, abdominal pain, heartburn, nausea, vomiting, constipation, or diarrhea. GENITOURINARY: Negative for urgency, frequency, dysuria, nocturia. MUSCULOSKELETAL: Negative for pain, swelling. NEUROLOGIC/PSYCHIATRIC: Negative for anxiety, depression. ALLERGY/IMMUNOLOGIC: Negative for skin rash, bleeding tendency. Otherwise, negative except as stated per HPI. PHYSICAL EXAMINATION: VITAL SIGNS: On admission, blood pressure 99/66, pulse 61, respiratory rate 16, temperature 97.6 degrees Fahrenheit, and O2 saturation 98% on room air. GENERAL APPEARANCE: This is a 48-year-old female, alert and oriented x3, pleasant, conversant, in no acute distress. HEENT: Pupils are equal, round, reactive to light and accommodation. Extraocular muscles are intact. No scleral icterus. No conjunctival injection. Nares are patent. OP is clear. Teeth in fair repair. NECK: Supple. No cervical adenopathy. No thyromegaly. No carotid bruits. No JVD appreciated. Cervical spine with full active and passive range of motion. No meningeal signs noted. CHEST: Lungs are clear to auscultation bilaterally. CARDIOVASCULAR: S1 and S2 with mechanical click noted in the precordium. ABDOMEN: Rounded, soft, mild tenderness to palpation in the left lower quadrant. Midline surgical scar consistent with prior surgical history. No rebound or guarding noted. Bowel sounds are positive in all 4 quadrants. EXTREMITIES: Warm and dry with fair turgor. No clubbing, cyanosis, or asymmetric edema appreciated. Pulses are palpable distally at the dorsalis pedis, posterior tibial, and popliteal arteries bilaterally. Capillary refill less than 2 seconds. NEUROLOGIC: Cranial nerves II through XII are grossly intact. No focal or lateralizing signs appreciated. PERTINENT LABORATORY AND X-RAY FINDINGS: Sodium 140, potassium 2.9, chloride 109, CO2 of 20, BUN 24.7, and creatinine 1.2. LFTs within normal limits. CBC showed a white blood cell count of 7.3, hemoglobin 10.5, hematocrit 30, MCV 102, and platelet count 294. PT 13.9, INR 1.1. Hemoccult negative x1 on 10/14/2018. CT of the abdomen and pelvis dated 10/14/2018, showed no acute intraabdominal process. EKG dated 10/14/2018, by my interpretation shows sinus mechanism with heart rates in the 60s. Attenuated R-waves noted in the precordial leads. Normal axis. No acute ST-T wave changes appreciated. ASSESSMENT AND PLAN: 1. Melena. The patient will be admitted to the medical floor. Recurrent history of multiple gastrointestinal bleeds secondary to gastric ulcerations. We will continue Protonix infusion. Continue IV fluids with normal saline at 75 mL/h. Avoid anticoagulation and NSAIDs. Consult GI Service for consideration of EGD evaluation. N.p.o. currently. 2. Acute blood loss anemia secondary to gastrointestinal bleed. See melena as above. Serial H and H monitoring. No current evidence to suggest the need for transfusion of packed red blood cells. Repeat CBC in the a.m. 3. Acute kidney injury. Suspect secondarily to volume depletion and melena. Continue low volume IV fluid replacement and avoid nephrotoxic agents and limit contrast exposure. Repeat creatinine in the a.m. 4. Chronic anticoagulation. PT and INR within normal limits currently. Continue to hold anticoagulation with potential esophagogastroduodenoscopy evaluation pending. 5. Chronic pain syndrome. Continue morphine sulfate 4 mg IV q.4 hours p.r.n. until able to tolerate regular outpatient Percocet prescription. 6. Prophylaxis. SCDs while in bed. Protonix infusion as outlined previously. 7. Code status is full. Surrogate medical decision maker is the patient's spouse. Job ID: [id number]
[2018-10-15] MEDS: Morphine 4 MG/ML VIAL SLOW IVP PRN ×2 (15:52→20:28)
[2018-10-15] MEDS ORDERED: Warfarin Sodium 5 MG TAB PO SCH (17:00)
[2018-10-15] MEDS: Topiramate 25 MG TAB PO SCH (20:28)
[2018-10-15] MEDS ORDERED: clonazePAM 1 MG TAB PO SCH (21:00)
--- NOTE | 2018-10-15 21:59 | CON ---
DATE OF CONSULTATION: 10/15/2018 CHIEF COMPLAINT: Black stool. HISTORY OF PRESENT ILLNESS: Ms. Gutierrez is a 48-year-old female from [place], who has had a long history of recurrent upper GI bleed for the last 3 to 4 years. She is on chronic warfarin for mechanical mitral valves. Four days ago, she noted melenic stools characterized as black tarry stool. At that time, she stopped her warfarin. She denies any abdominal pain. She only have one episode of emesis that was not bloody. The patient presented to [place] [facility] and subsequently transferred to this facility. Her current hemoglobin is 9.8 with normal hemodynamics. The patient has had multiple admissions to this hospital since 2016. Multiple upper endoscopy has demonstrated duodenal ulcers and also antral ulcer one time. Reportedly, she had a normal colonoscopy here in [place], which I could not locate the record. She subsequently went down to [facility] in [place]. There, she has had recurrent admissions, in April and June of this year for recurrent bleed. She had abdominal surgery at [facility], sometime in the fall. The exact surgery is not known. In addition, she also reports having had small-bowel capsule evaluation that did not show any active finding. She has not had any further melena for the last 24 hours. PAST MEDICAL HISTORY: 1. Autoimmune hepatitis. 2. Hypertension. 3. Mitral valve replacement with chronic warfarin therapy. 4. Hypertension. 5. Seizure disorder. 6. History of migraines. 7. Rheumatoid arthritis. 8. Status post cholecystectomy/appendectomy/hysterectomy. 9. History of spinal fusion. 10. Status post mitral valve replacement in 2012. MEDICATIONS: At home include: 1. Lipitor. 2. Klonopin. 3. Keppra. 4. Losartan. 5. Oxycodone/acetaminophen p.r.n. pain. 6. Topamax. 7. Coumadin 5 mg p.o. daily. 8. Protonix 40 mg b.i.d. ALLERGIES: STEROID. FAMILY HISTORY: Negative for any known GI problem, liver disease, or GI malignancy. SOCIAL HISTORY: The patient is , lives with her in [place]. She denies any tobacco or alcohol usage. REVIEW OF SYSTEMS: A 10-point review of systems did not show any other pertinent positives or negatives. PHYSICAL EXAMINATION: VITAL SIGNS: Temperature is 97.6, blood pressure 99/66, pulse of 61. GENERAL: She is alert, conversant, in no distress. HEENT: Shows anicteric sclerae. Oropharynx is clear. NECK: Supple. CV: Shows normal S1, S2. Regular rate and rhythm. CHEST: Shows breath sounds. ABDOMEN: Soft. There is a midline scar in the upper to mid abdomen. No palpable mass or organomegaly. She has active bowel sounds. EXTREMITIES: Shows no edema. LABORATORY DATA: Hemoglobin is 9.8, hematocrit 28.3 from this morning. INR is 1.1. ASSESSMENT: The patient with history of recurrent upper gastrointestinal bleed with a background of chronic warfarin therapy for mechanical heart valve. She reports having had melena, which is indicative of recurrent bleed. She has stopped her warfarin 4 days ago. Currently, she is hemodynamically stable. She has had reportedly partial gastric resection and small bowel resection in [place] in the fall at [facility] within the last year. Her current bleeding does not appear to be very active at the present time. RECOMMENDATIONS: 1. Proceed with upper endoscopy today. 2. Continue to trend her blood count. 3. Further recommendation to follow pending endoscopic findings. Job ID: [id number]
--- NOTE | 2018-10-15 22:15 | OP ---
DATE OF PROCEDURE: 10/15/2018 PROCEDURE PERFORMED: Esophagogastroduodenoscopy. PREMEDICATION: Given by Anesthesiology Department. PREPROCEDURE DIAGNOSES: 1. Melena, indicative of upper gastrointestinal bleed. 2. History of recurrent peptic ulcer disease and recent gastric surgery. POSTPROCEDURE DIAGNOSES: 1. Distal small bowel/gastric anastomosis next to the [place] pylorus. 2. Exploration of presumed jejunal loop for approximately 30 cm without any signs of bleeding. 3. Evaluation of duodenal bulb and second portion of duodenum normal without any source of bleeding. 4. Bile alkaline gastritis, otherwise normal stomach and esophagus. 5. No source of bleeding identified. DESCRIPTION OF PROCEDURE: Written consents were obtained prior to procedure. After adequate sedation, forward-viewing endoscope was advanced down the stomach under direct vision. There was copious amount of bile in the stomach that was evacuated. An anastomosis of a small bowel loop to the distal stomach was visualized and appeared normal. The small bowel loop attached to the stomach was explored for approximately 30-40 cm and appears normal. Next anastomosis, the pollicis visualized and appeared patent. The endoscope was placed through the pylorus into the duodenum. The second portion and duodenal bulb appeared normal. No ulceration was visualized at this area. Examination of the gastric lining appeared normal except for diffuse erythema consistent with alkaline bile gastritis. Retroflexion did not show any abnormality. GE junction was located at 38 cm from the incisors. The distal, mid, and upper esophagus appeared normal. No source of bleeding was identified on this exam. ASSESSMENT: 1. Status post presumed gastrojejunostomy anastomosis. 2. Alkaline gastritis. 3. Otherwise normal exam without any bleeding seen. RECOMMENDATIONS: 1. Continue to monitor blood count. 2. We will resume Coumadin and monitor for any signs of recurrent bleeding. Job ID: [id number]
[2018-10-16] MEDS: Morphine 4 MG/ML VIAL SLOW IVP PRN ×2 (01:25→09:32)
[2018-10-16] MEDS: Sodium Chloride 0.9% 1,000 ML IV SCH ×2 (01:26→12:11)
[2018-10-16 06:24] LABS: Prothrombin Time 13.3 SEC (12.0-14.7)
[2018-10-16 06:30] LABS: Band 10 % (5-11); Eosinophils 1 % (0-10); Hemoglobin 9.3 g/dL (12.0-16.0); Lymphocytes 18 % (21-51); MDiff Complete? YES; Macrocytosis SLIGHT = 6-15 cells (100X) (0-5/hpf); Mean Corpuscular HGB CONC 33.6 g/dL (32.0-36.0); Mean Corpuscular Hemoglobin 36.5 pg (27.0-31.0); Mean Platelet Volume 7.5 fL (7.4-10.4); Monocytes 8 % (0-10); Neutrophil 63 % (42-75); Platelet Count 260 thou/uL (130-400); Platelet Morphology Comment Appears Adequate; RBC Distribution Width 12.6 % (11.5-14.5); Red Blood Cell (RBC) Count 2.54 mill/uL (4.20-5.40); White Blood Cell (WBC) Count 7.5 thou/uL (4.8-10.8)
[2018-10-16 06:39] LABS: Anion Gap 10 mmol/L (10-20); BUN (Urea Nitrogen) 18 mg/dL (7.0-18.7); Calc. Creatinine Clearance 113 mL/min (70-130); Calcium 8.3 mg/dL (7.8-10.44); Carbon Dioxide 21 mmol/L (22-29); Chloride 109 mmol/L (98-107); Estimated GFR-MDRD 75; Glucose 99 mg/dL (70-105); Potassium 3.4 mmol/L (3.5-5.1); Sodium 137 mmol/L (136-145)
[2018-10-16 07:47] VITALS: BP 116/71; TEMP 98.1
[2018-10-16] MEDS ORDERED: Losartan 25 MG TAB PO SCH (09:00)
[2018-10-16] MEDS ORDERED: levETIRAcetam 500 MG TAB PO SCH (09:00)
[2018-10-16] MEDS: Topiramate 25 MG TAB PO SCH (09:33)
--- NOTE | 2018-10-16 20:43 | DIS ---
DATE OF ADMISSION: 10/15/2018 DATE OF DISCHARGE: 10/16/2018 DISCHARGE DIAGNOSES: 1. Melena without identifiable cause. 2. Macrocytic anemia. Stable. 3. Acute kidney injury secondary to volume depletion, resolved. 4. Chronic anticoagulation with Coumadin with subtherapeutic INR. 5. Chronic pain syndrome. CONSULTATIONS: Dr. Dominguez with GI Service. PERTINENT LABORATORY AND X-RAY FINDINGS: Hemoglobin ranged between 9.3 to 9.8, MCV 109. INR ranged between 1.0 to 1.1. Creatinine ranged between 0.81 to 1.2. EGD dated 10/15/2018, showed distal small bowel/gastric anastomosis intact. No evidence for acute blood loss or ulceration. Mild bile alkaline gastritis noted. HOSPITAL COURSE: The patient was admitted to the medical floor after initially presenting with questionable melena in the context of known gastric and duodenal ulceration with recurrent GI bleeds in the context of chronic anticoagulation with Coumadin. The patient underwent initial evaluation including serial hemoglobin assessment showing stable values ranging between 9.3 and 10.4. The patient received IV Protonix and was held on anticoagulation. The patient was evaluated by the GI Service and undergone EGD evaluation showing no evidence of active ulceration or bleeding, with mild alkaline gastritis. The patient clinically stabilized with general supportive management and IV fluids. The patient transitioned from IV Protonix to oral Protonix without complication. Current recommendations are to continue proton pump inhibitors and resume anticoagulation with Coumadin. I have examined the patient at time of discharge and discussed followup instructions. The patient verbalized understanding and in agreement, ready for discharge on 10/16/2018. DISCHARGE MEDICATIONS: 1. Lipitor 40 mg p.o. daily. 2. Buprenorphine one patch transdermally q.7 days. 3. Clonazepam 1 mg p.o. at bedtime. 4. Keppra 1500 mg p.o. daily. 5. Losartan 100 mg p.o. daily. 6. Oxycodone/acetaminophen 7.5/325 mg one tablet p.o. q.6 hours p.r.n. 7. Topamax 50 mg p.o. b.i.d. 8. Coumadin 5 mg p.o. daily with goal INR of 2.5 to 3.5. 9. Protonix 40 mg p.o. b.i.d. FOLLOWUP: The patient may follow up with her primary care provider, Dr. Valencia in [place], [place] within 7 days of discharge. 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 CONDITION ON DISCHARGE: Stable. ACTIVITY: Ad-perri. DIET: Coumadin prudent. CODE STATUS: Full. DISPOSITION: Home on 10/16/2018. TIME SPENT: Total time preparing and coordinating discharge is 33 minutes. Job ID: [id number]
== END 2018-10-16 16:35 | disposition home or self-care (01) | DRG 378 ==
LOC: ERS 01:16 → T4-B 01:49
PROVIDERS: ADMIT Hospitalist; ATTEND Hospitalist
PROC: 0DJ08ZZ Inspection of Upper Intestinal Tract, Via Natural or Artificial Opening Endoscopic (ICD-10-PCS; principal; 2018-10-15)
DX: K92.1 Melena (principal); N17.9 Acute kidney failure, unspecified; D62 Acute posthemorrhagic anemia; E78.5 Hyperlipidemia, unspecified; G40.909 Epilepsy, unspecified, not intractable, without status epilepticus; I10 Essential (primary) hypertension; M79.7 Fibromyalgia; K74.60 Unspecified cirrhosis of liver; G43.909 Migraine, unspecified, not intractable, without status migrainosus; G89.4 Chronic pain syndrome; M06.9 Rheumatoid arthritis, unspecified; E86.9 Volume depletion, unspecified; K29.60 Other gastritis without bleeding; K75.4 Autoimmune hepatitis; Z95.2 Presence of prosthetic heart valve; Z90.710 Acquired absence of both cervix and uterus; Z90.49 Acquired absence of other specified parts of digestive tract; Z87.891 Personal history of nicotine dependence; Z88.8 Allergy status to other drugs, medicaments and biological substances; Z79.899 Other long term (current) drug therapy; Z79.02 Long term (current) use of antithrombotics/antiplatelets
CPT/HCPCS: 36415; 80048; 83735; 85007; 85014; 85018; 85027; 85610; 85730; 93005; C9113; J2270; J3475; J3490